=== PATIENT | female | born 1945 | race Caucasian/White ===

== ENCOUNTER 2016-09-03 19:07 | Observation (INO) ==
[2016-09-03] MEDS ORDERED: *HR* OxyCODONE Immed Rel 15 MG TABLET PO PRN (22:42)
[2016-09-04] MEDS ORDERED: Ondansetron 4 MG/2 ML VIAL IVP PRN (01:22)
[2016-09-04] MEDS ORDERED: *HR* Morphine 2 MG/ML SYRINGE IVP PRN (01:22)
[2016-09-04] MEDS ORDERED: Naloxone 0.4 MG/ML INJ IVP PRN (01:22)
[2016-09-04 02:03] LABS: VBG PH 7.47 pH Units (7.32-7.42)
[2016-09-04 02:08] LABS: INR 1.5; Prothrombin Time 16.2 Seconds (9.4-12.1)
[2016-09-04 02:19] LABS: Albumin/Globulin Ratio 0.4 (1.1-2.2); Bilirubin,Total 0.3 mg/dL (0.2-1.2); Calcium 8.4 mg/dL (8.6-10.8); Chol/HDL Ratio 4.6 (0-4.9); Globulin 4.5 g/dL (2.4-3.5); Magnesium 1.5 mg/dL (1.6-2.6); Potassium 4.5 mEq/L (3.5-4.5); Total Protein 6.4 g/dL (6.0-8.3)
[2016-09-04 02:21] LABS: Albumin 1.9 g/dL (3.5-5.0)
[2016-09-04 02:39] LABS: Thyroid Stimulating Hormone 1.097 mcIU/mL (0.350-4.840)
[2016-09-04] MEDS: *HR* OxyCODONE Immed Rel 5 MG TABLET PO PRN ×2 (02:48→21:28)
[2016-09-04] MEDS: 0.9 % Sodium Chloride 1,000 ML IVC SCH ×2 (02:48→23:11)
[2016-09-04] MEDS: Acetaminophen 325 MG TABLET PO PRN (04:05)
[2016-09-04] MEDS: *HR* Heparin 5,000 UNIT/ML VIAL SQ SCH ×3 (06:18→23:15)
--- NOTE | 2016-09-04 08:57 | Internal Med History&Physical ---
Date of Encounter: 09/03/16 Time of Encounter: 01:00 Assessment and Plan (1) Atrial fibrillation with rapid ventricular response Status: Acute . (2) UTI (urinary tract infection) Status: Acute . Qualifiers: Urinary tract infection type: acute cystitis Hematuria presence: with hematuria Qualified Code(s): N30.01 - Acute cystitis with hematuria (3) SIRS (systemic inflammatory response syndrome) Status: Acute . (4) Obesity (BMI 30-39.9) Status: Chronic . (5) CL (acute kidney injury) Status: Acute . (6) CKD (chronic kidney disease) stage 3, GFR 30-59 ml/min Status: Chronic . (7) Rectal cancer Status: Chronic . (8) Hematuria Status: Acute .. Internal Medicine - H&P: HPI Chief complaint: Generalized weakness Admitted From: Hospital to Hospital Transfer Plans for Post Hospital Care: Home History of present illness: Ms. Figueredo is a 70 year old female is significant for colo-rectal carcinoma s/p pelvic exoneration+ neoadjuvant chemotherapy and radiation therapy+ileostomy+ urostomy, type 2 DM, osteoarthritis, osteopenia, RAD/asthma, obesity, nonsmoker The patient was visited and interviewed and examined. Patient is admitted to [facility] as a hospital transfer from [facility] [place] emergency Department [facility] patient presented with complaints possible stroke symptoms. EMS services were called to her home by her daughter. Patient was found supine in bed complaining of difficulty speaking. Patient's daughter reported that speech was garbled on the phone earlier in the morning. She consequently called 911 to the home to evaluate. Patient patient has a history of metastatic colon CA. He recently underwent surgeries VELA and considering. Her oncologist had prescribed two new pain medication the day prior to address acute/chronic pain and anxiety( oxycodone 20 mg every 6 hours plus OxyContin extended release 20 mg twice daily) and an antibiotic for UTI (Cipro 500 mg twice daily). She had developed a urinary tract obstruction with bilateral hydronephrosis and was to be seen by urology later in the week. As a consequence although alert she was found to be confused and her speech was slurred and hard to understand. Patient was able to follow commands. Telemetry demonstrated atrial fibrillation with RVR at 150 -160 bpm initial blood sugar returned low at 35 and 25 mg of D50 administered. Following receiving this patient to was able to speak more clearly. Seemed more alert and oriented. Acute stroke assessment returned negative. Blood sugar post administration of D50 80 mg. Large cyst approximately mid thigh and went to venous duplex examination which was negative for DVT consistent with superficial vein. Portable chest x-ray revealed no acute or active cardiopulmonary process. Troponin measurements 2 returned at 0.08. BNP 545. WBC 22.8 hemoglobin 8.8 platelets 455,000. Differential showed an increase in neutrophils. CPK 36 KMP 1.8. Metabolic panel showed a sodium of 132 and glucose of 10 10 creatinine 1.35. GFR 41. Albumin was 2.8 with total of 6.5. AST 63 ALT 42. D-dimer 1122. Magnesium 2. PTT 29.4 pro time 15.6 INR 1.4. Lactic acid 2.27 glucose point care prior to transfer to [facility]. Additional treatments prior to transfer including intravenous Lopressor plus oral Lopressor loading dose, intravenous normal saline bolus, intravenous cefepime and vancomycin and oral Percocet. Diagnoses included sepsis unspecified likely of urinary source.; paroxysmal atrial fibrillation with RVR with demand ischemia of myocardium and troponin elevation+ BNP elevation, r/o ACS; and symptomatic hypoglycemia induced transient acute metabolic encephalopathy and delirium. Patient presents increased risk for further acute clinical decline and morbidity given her presenting chief complaint, frailty and comorbid conditions. Workup and treatments will proceed comprehensively. Cumulative laboratory and radiographic data base was reviewed, considered and discussed. Pertinent ancillary medical records including ECW and PCI documentation was reviewed and considered. Given the patient's presenting concerns, past medical history, clinical findings and symptoms, she is admitted at this time will undergo further evaluation and disposition. Orders were written as per the computerized physician court recorder system.......................................................................... .................... Consultative opinions will be sought as clinical circumstances justify. Pain management needs will be addressed. Laboratory and radiographic data base will be updated as appropriate. Studies include: Cultures blood urine and sputum, CPK, ammonia, NV/INR/APTT, cardiac injury panel, BNP, metabolic and hematologic panel, magnesium, phosphorus, ionized calcium, thyroid panel, lipid profile, hgbA1c, C-peptide, CRP sedi rate , UA, respiratory infection profile, respiratory virus panel, blood gas, lactic acid, serologies, etc. Precautions: Aspiration, fall, delirium protocol/surveillance initiated. Telemetry with continuous hemodynamic monitoring and pulse oximetry initiated. Orthostatic vital signs. Empiric antibody coverage: Intravenous Rocephin pending culture data. Special studies: CT/CTA chest, CT abd/pelvis, chest x-ray, telemetry, EKG. Pulmonary toilet: Incentive spirometry, aerosol bronchodilator, mucolytic, antitussive, supplemental oxygen. Corticosteroid therapy. CPAP/BiPAP supplemental oxygen delivery. Aerosol Mucomyst therapy. Fluid and electrolyte repletion efforts will proceed. Careful attention to fluid balance and renal recovery will be emphasized. Avoidance of nephrotoxic exposure and adverse drug drug interaction in the setting of impaired renal function will be monitored closely. Acute coronary syndrome protocol/surveillance initiated. Aspirin statin LYNNETTE inhibitor and beta benny. Therapeutic Lovenox. When necessary morphine. When necessary nitrates. Supplemental oxygen. IV Diltiazem loading dose and diltiazem drip initiated. DVT and PUD prophylaxis initiated: PPI therapy, intermittent pneumatic cuffs. Subq heparin/Lovenox. Early ambulation will be encouraged. Immunization updates recommended. Influenza and pneumococcal vaccinations as part of ongoing preventative healthcare recommendations strongly recommended. Smoking cessation counseling briefly addressed. Patient is a nonsmoker. Advanced care directive discussion briefly addressed. Patient does not declare any healthcare restrictions at this time. Cardiovascular risk appraisal and cardiovascular risk reduction efforts will be emphasized. Physical /occupational therapy consulted to evaluate patient's functional capacity and progress mobility as her circumstances permit. Sliding scale insulin coverage, ADA dietary restraint and schedule an as-needed basis fingerstick glucose assessments were initiated. Nutrition/diabetes education counseling may be considered as circumstances justify. Outpatient medication schedules will be reviewed, confirmed and facilitated as appropriate. Reconciliation of home treatments including adjustments, substitutions and reintroduction into the treatment regimen will address necessary maintenance therapies for chronic pre-existing medical conditions. Plan of care has been reviewed and discussed in detail with the patient. Questions addressed. Hospital course dictated by clinical findings, treatment response and potential consultative interventions. Patient is at risk for further acute clinical decline and morbidity due to her advanced age,frailty, chief complaints and comorbid conditions. Condition is serious. Prognosis is guarded. CODE STATUS is full. Past Med Surg Social Fam HX - Past Medical History Source: old records reviewed Medical history: arthritis, atrial fibrillation, cancer, diabetes, GERD, glaucoma, hypertension, osteoporosis Psychiatric history: no psych history - Past Surgical History Surgical History: cancer surgery, colostomy, other - Social History Smoking Status: Former smoker Smokeless Tobacco Status: No Alcohol use: none Drug use: none Occupational status: retired Current living situation: With Family Activity Level: Mostly sedentary Recent Out of Country Travel Within the Last 8 Weeks: No Exposure or Possible Exposure to Illness During Travel: No - Family History Brother Living Status: Still Living Hx Family Cardiac Disorders: Yes (AFIB) Hx Family Respiratory Disorders: No Hx Family Cancer: No Hx Family GI Disorders: No Hx Family Genitourinary Disorders: No Hx Family Endocrine Disorder: No Hx Family Musculoskeletal Disorders: No Hx Family Neuromuscular Disorders: No Hx Family Neurologic Disorders: No Hx Family HEENT Disorders: No Hx Family Autoimmune Disorders: No Hx Family Reproductive Disorders: No Hx Family Psychosocial Disorders: No Hx Family Medical Disorders: No Sister Living Status: Still Living Hx Family Cardiac Disorders: Yes (AFiB) Hx Family Respiratory Disorders: No Hx Family Cancer: No Hx Family GI Disorders: No Hx Family Genitourinary Disorders: No Hx Family Endocrine Disorder: Yes (DM) Hx Family Musculoskeletal Disorders: No Hx Family Neuromuscular Disorders: No Hx Family Neurologic Disorders: No Hx Family HEENT Disorders: No Hx Family Autoimmune Disorders: No Hx Family Reproductive Disorders: No Hx Family Psychosocial Disorders: No Hx Family Medical Disorders: No Son Living Status: Still Living Hx Family Cardiac Disorders: Yes (HTN) Hx Family Respiratory Disorders: No Hx Family Cancer: No Hx Family GI Disorders: No Hx Family Genitourinary Disorders: No Hx Family Endocrine Disorder: Yes (DM) Hx Family Musculoskeletal Disorders: No Hx Family Neuromuscular Disorders: No Hx Family Neurologic Disorders: No Hx Family HEENT Disorders: No Hx Family Autoimmune Disorders: No Hx Family Reproductive Disorders: No Hx Family Psychosocial Disorders: No Hx Family Medical Disorders: No Mother Family Member Ethnicity: Unknown Living Status: Hx Family Cardiac Disorders: Yes Hx Family Respiratory Disorders: No Hx Family Cancer: No Hx Family GI Disorders: No Hx Family Genitourinary Disorders: No Hx Family Endocrine Disorder: Yes Hx Family Musculoskeletal Disorders: No Hx Family Neuromuscular Disorders: Yes Hx Family Neurologic Disorders: No Hx Family HEENT Disorders: No Hx Family Autoimmune Disorders: No Hx Family Reproductive Disorders: No Hx Family Psychosocial Disorders: No Hx Family Medical Disorders: No Father Adopted: No Family Member Ethnicity: Non- Living Status: Hx Family Cardiac Disorders: Yes Hx Family Respiratory Disorders: No Hx Family Cancer: No Hx Family GI Disorders: No Hx Family Genitourinary Disorders: No Hx Family Endocrine Disorder: No Hx Family Musculoskeletal Disorders: No Hx Family Neuromuscular Disorders: No Hx Family Neurologic Disorders: No Hx Family HEENT Disorders: No Hx Family Autoimmune Disorders: No Hx Family Reproductive Disorders: No Hx Family Psychosocial Disorders: No Hx Family Medical Disorders: No Internal Medicine - H&P: Meds Multivitamin [Multi-Day Vitamins] 1 each PO DAILY 04/18/15 [History] Avenue Oil/[place]-3 Fatty Acids [Fish Oil 500 mg Softgel] 1 each PO DAILY [History] Fluticasone Propionate Nasal [Flonase] 1 spray NS DAILY 08/20/15 [History] Zolpidem [Ambien] 5 mg PO Q6H PRN 08/20/15 [History] Docusate Sodium [Stool Softener] 100 mg PO BID PRN 06/10/16 [History] Losartan Potassium [Cozaar] 100 mg PO DAILY 09/03/16 [History] Aspirin 81 mg PO DAILY 09/04/16 [History] Loratadine [Claritin] 10 mg PO DAILY 09/04/16 [History] Metoprolol XL (24 HR) Succ [Toprol Xl] 50 mg PO DAILY 09/04/16 [History] OxyCODONE ER (12 HR) [OxyCONTIN] 20 mg PO BID 09/04/16 [History] Oxycodone HCl 5 mg PO Q6H PRN 09/04/16 [History] Oxycodone HCl/Acetaminophen [Percocet 5-325 mg Tablet] 1 each PO Q6H PRN [History] Metformin [Glucophage] 500 mg PO 0800 #30 tablet 09/08/16 [Rx] Allergies Penicillins Allergy (Verified 09/04/16 11:39) Rash All Systems PM: A 10-system review of systems was performed and is negative for pertinent findings except as documented above in the HPI. - Constitutional Constitutional: as per HPI, malaise, no chills, no fever(s), no night sweats - EENT Eyes: as per HPI, no change in vision, no discharge, no pain, no photophobia Ears: as per HPI, no ear discharge, no ear pain, no tinnitus Nose, mouth and throat: as per HPI, no dysphagia, no nasal discharge, no neck pain, no sore throat - Cardiovascular Cardiovascular ROS IM: as per HPI, irregular heart rhythm, lightheadedness, palpitations, no chest pain, no diaphoresis, no dyspnea, no syncope - Respiratory Respiratory: as per HPI, no cough, no dyspnea, no wheezing, no excessive phlegm production - Gastrointestinal Gastrointestinal: no abdominal pain, no diarrhea, no hematemesis, no hematochezia, no melena, no nausea, no vomiting - Genitourinary Genitourinary: as per HPI, no change in urinary stream, no dysuria, no flank pain, no hematuria - Musculoskeletal Musculoskeletal ROS IM: as per HPI, no numbness, no tingling - Integumentary Integumentary IM: as per HPI, no rash, no unusual bruising - Neurological Neurological ROS: as per HPI, no confusion, no convulsions, no focal weakness, no numbness, no tingling, no tremor(s) - Psychiatric Psychiatric: as per HPI - Endocrine Endocrine IM: as per HPI - Hematologic/Lymphatic Hematologic/Lymphatic: as per HPI, no easy bruising - Allergic/Immunologic Allergic/Immunologic: as per HPI - Constitutional Vitals: Temp Pulse Resp BP Pulse Ox 97.8 F 83 18 122/57 97 09/04/16 08:02 09/04/16 08:02 09/04/16 08:02 09/04/16 08:02 09/04/16 08:02 General appearance: Present: cooperative, mild distress, A&O X 3, obese, answers questions appropriately - Head Head exam: Present: atraumatic, normocephalic - Eye Eye exam: Present: EOMI, PERRL, conjuntiva pink, sclera anicteric Pupils: Present: PERRL - ENT ENT exam: Present: mucous membranes moist, normal oropharynx - Neck Neck exam general surgery: Present: full ROM, supple, trachea midline. Absent: lymphadenopathy - Respiratory Respiratory exam: Present: decreased breath sounds, CTAB. Absent: accessory muscle use, rales, rhonchi, wheezes - Cardiovascular Cardiovascular exam: Present: distant heart sounds, RRR, +S1, +S2. Absent: diastolic murmur, gallop, rubs, systolic murmur - GI/Abdominal GI/Abdominal exam: Present: normal bowel sounds, soft, no peritoneal signs. Absent: distended, tenderness - Extremities Exam Extremities exam: Present: full ROM, warm, radial pulses palpable and symetrical. Absent: calf tenderness, cyanotic, pedal edema - Neurological Exam Neurological exam: Present: alert, CN II-XII intact, oriented X3, no focal deficits. Absent: pronater drift, facial droop, speech deficit - Psychiatric Psychiatric exam: Present: normal affect, normal mood - Skin Skin exam: Present: dry, intact, warm. Absent: petechiae, rash, urticaria, vesicles Internal Med - H&P Results - Labs CBC & Chem 7: 09/08/16 04:17 09/08/16 04:17 Labs: BMP 09/04/16 01:54 Sodium 134 L Potassium 4.5 Chloride 105 Carbon Dioxide 22 BUN 24 H Creatinine 1.19 H Glucose 113 H Calcium 8.4 L Cardiac Enzymes 09/04/16 Range/Units 01:54 Troponin I 0.05 H* (0-0.03) ng/mL Liver Function 09/04/16 Range/Units 01:54 Total Bilirubin 0.3 (0.2-1.2) mg/dL AST 268 H (5-34) Units/L ALT 180 H (0-55) Units/L Alkaline Phosphatase 75 (38-126) Units/L Albumin 1.9 L (3.5-5.0) g/dL - ABG Interpretation ABG results: 09/04/16 01:54 VBG pH 7.47 H VBG pCO2 33 L VBG pO2 50 H VBG HCO3 24.0 - Impressions Vital Signs Temp Pulse Resp BP Pulse Ox 09/04/16 08:02 97.8 F 83 18 122/57 97 09/04/16 05:25 98.1 F 09/04/16 04:00 100.2 F H 103 19 136/82 98 09/03/16 22:09 98.4 F 92 17 131/77 97 09/03/16 21:41 96 Intake and Output 09/03/16 09/04/16 09/04/16 23:59 07:59 15:59 Intake Total 0 / 0 600 / 600 Output Total 0 / 0 1200 / 1200 1000 / 1000 Balance 0 / 0 -600 / -600 -1000 / -1000 Intake: Oral 0 / 0 600 / 600 Output: Urostomy 1200 / 1200 1000 / 1000 Catheter 0 / 0 0 / 0 Other: Weight 85.4 kg 85.4 kg Blood Glucose* 176 100 Patient Weight 09/04/16 23:59 Weight 85.4 kg BMP 09/04/16 Range/Units 01:54 Sodium 134 L (136-145) mEq/L Potassium 4.5 (3.5-4.5) mEq/L Chloride 105 (98-109) mEq/L Carbon Dioxide 22 (19-29) mEq/L BUN 24 H (7-20) mg/dL Creatinine 1.19 H (0.57-1.11) mg/dL Glucose 113 H (70-99) mg/dL Calcium 8.4 L (8.6-10.8) mg/dL Cardiac Enzymes 09/04/16 Range/Units 01:54 Troponin I 0.05 H* (0-0.03) ng/mL Liver Function 09/04/16 Range/Units 01:54 Total Bilirubin 0.3 (0.2-1.2) mg/dL AST 268 H (5-34) Units/L ALT 180 H (0-55) Units/L Alkaline Phosphatase 75 (38-126) Units/L Albumin 1.9 L (3.5-5.0) g/dL 09/04/16 01:54 VBG pH 7.47 H VBG pCO2 33 L VBG pO2 50 H VBG HCO3 24.0 Abnormal lab results PT 16.2 Seconds (9.4-12.1) H 09/04/16 01:54 VBG pH 7.47 pH Units (7.32-7.42) H 09/04/16 01:54 VBG pCO2 33 mmHg (41-51) L 09/04/16 01:54 VBG pO2 50 mmHg (25-40) H 09/04/16 01:54 Sodium 134 mEq/L (136-145) L 09/04/16 01:54 BUN 24 mg/dL (7-20) H 09/04/16 01:54 Creatinine 1.19 mg/dL (0.57-1.11) H 09/04/16 01:54 Est GFR ( Amer) 54 (> 60) L 09/04/16 01:54 Est GFR (Non-Af Amer) 45 (> 60) L 09/04/16 01:54 Glucose 113 mg/dL (70-99) H 09/04/16 01:54 POC Glucose 176 (58-89) H 09/03/16 22:08 Calcium 8.4 mg/dL (8.6-10.8) L 09/04/16 01:54 Magnesium 1.5 mg/dL (1.6-2.6) L 09/04/16 01:54 AST 268 Units/L (5-34) H 09/04/16 01:54 ALT 180 Units/L (0-55) H 09/04/16 01:54 Troponin I 0.05 ng/mL (0-0.03) H* 09/04/16 01:54 C-Reactive Protein 234 mg/L (Less than 5) H 09/04/16 01:54 Albumin 1.9 g/dL (3.5-5.0) L 09/04/16 01:54 Globulin 4.5 g/dL (2.4-3.5) H 09/04/16 01:54 Albumin/Globulin Ratio 0.4 (1.1-2.2) L 09/04/16 01:54 HDL Cholesterol 18 mg/dL (40-59) L 09/04/16 01:54 Allergies Allergy/AdvReac Type Severity Reaction Status Date / Time Penicillins Allergy Rash Verified 06/09/16 14:41 Laboratory Results PT 16.2 Seconds (9.4-12.1) H 09/04/16 01:54 INR 1.5 09/04/16 01:54 APTT 26.0 Seconds (26.0-36.0) 09/04/16 01:54 VBG pH 7.47 pH Units (7.32-7.42) H 09/04/16 01:54 VBG pCO2 33 mmHg (41-51) L 09/04/16 01:54 VBG pO2 50 mmHg (25-40) H 09/04/16 01:54 VBG HCO3 24.0 mEq/L (21-27) 09/04/16 01:54 Sodium 134 mEq/L (136-145) L 09/04/16 01:54 Potassium 4.5 mEq/L (3.5-4.5) 09/04/16 01:54 Chloride 105 mEq/L (98-109) 09/04/16 01:54 Carbon Dioxide 22 mEq/L (19-29) 09/04/16 01:54 BUN 24 mg/dL (7-20) H 09/04/16 01:54 Creatinine 1.19 mg/dL (0.57-1.11) H 09/04/16 01:54 Est GFR ( Amer) 54 (> 60) L 09/04/16 01:54 Est GFR (Non-Af Amer) 45 (> 60) L 09/04/16 01:54 BUN/Creatinine Ratio 20 (6-26) 09/04/16 01:54 Glucose 113 mg/dL (70-99) H 09/04/16 01:54 POC Glucose 176 (58-89) H 09/03/16 22:08 Calculated Osmolality 283 (280-300) 09/04/16 01:54 Lactic Acid 0.8 mmol/L (0.5-2.2) 09/04/16 01:54 Calcium 8.4 mg/dL (8.6-10.8) L 09/04/16 01:54 Phosphorus 2.6 mg/dL (2.3-4.7) 09/04/16 01:54 Magnesium 1.5 mg/dL (1.6-2.6) L 09/04/16 01:54 Total Bilirubin 0.3 mg/dL (0.2-1.2) 09/04/16 01:54 AST 268 Units/L (5-34) H 09/04/16 01:54 ALT 180 Units/L (0-55) H 09/04/16 01:54 Alkaline Phosphatase 75 Units/L (38-126) 09/04/16 01:54 Troponin I 0.05 ng/mL (0-0.03) H* 09/04/16 01:54 C-Reactive Protein 234 mg/L (Less than 5) H 09/04/16 01:54 Serum Total Protein 6.4 g/dL (6.0-8.3) 09/04/16 01:54 Albumin 1.9 g/dL (3.5-5.0) L 09/04/16 01:54 Globulin 4.5 g/dL (2.4-3.5) H 09/04/16 01:54 Albumin/Globulin Ratio 0.4 (1.1-2.2) L 09/04/16 01:54 Triglycerides 74 mg/dL (< 150) 09/04/16 01:54 Cholesterol 83 mg/dL (< 200) 09/04/16 01:54 LDL Cholesterol, Calc 50 mg/dL (0-99) 09/04/16 01:54 VLDL Cholesterol, Calc 15 mg/dL (< 31) 09/04/16 01:54 HDL Cholesterol 18 mg/dL (40-59) L 09/04/16 01:54 Cholesterol/HDL Ratio 4.6 (0-4.9) 09/04/16 01:54 TSH 1.097 mcIU/mL (0.350-4.840) 09/04/16 01:54 Specimen Rejected Clotted 09/04/16 02:05 Ileo Loopogram 09/05/16 07:15 IMPRESSION: No evidence for stricturing of ileal conduit or of bilateral ureteral attachments. Bilateral hydroureteronephrosis, etiology uncertain. D/ / 09/05/2016 15:11:16 Hugo Cochran MD / luis angel Interpreting Provider: Hugo Cochran MD
[2016-09-04] MEDS ORDERED: Aspirin Enteric Coated 81 MG Tablet PO SCH (09:00)
[2016-09-04] MEDS ORDERED: Diltiazem CD (24hr) 300 MG CAPSULE PO SCH (09:00)
[2016-09-04] MEDS ORDERED: *HR* OxyCODONE ER (12 HR) 20 MG TABLET PO SCH (09:00)
[2016-09-04] MEDS: Metoprolol 100 MG TABLET PO SCH (09:50)
[2016-09-04 09:52] LABS: Basophils # 0.1 K/mcL (0.0-0.2); Basophils % 0.4 %; Eosinophils # 0.1 K/mcL (0.0-0.6); Eosinophils % 0.6 %; Hemoglobin 7.7 g/dL (11.5-15.4); Immature Granulocytes % 1.2 % (0-4); Lymphocytes # 0.8 K/mcL (0.6-4.6); Mean Corpuscular HGB Conc 32.1 g/dL (31.6-35.5); Mean Corpuscular Hemoglobin 27.4 pg (28.0-33.3); Mean Corpuscular Volume 85.4 fL (83.0-100.0); Mean Platelet Volume 9.5 fL (9.4-12.4); Monocytes # 0.7 K/mcL (0.0-1.3); Monocytes % 6.2 %; Neutrophils # 9.5 K/mcL (1.6-8.9); Platelet Count 418 K/mcL (140-400); Red Blood Count 2.81 M/mcL (3.82-4.97); Red Cell Distribution Width 15.3 % (11.5-14.5); Segmented Neutrophils % 84.6 %
[2016-09-04] MEDS: (Fish Oil 500 Mg Soft) PO SCH (09:52)
[2016-09-04] MEDS: Fluticasone Propionate Nasal 50 MCG/SPRAY BOTTLE NS SCH (10:41)
[2016-09-04] MEDS: Saline Nasal Spray 44 ML BOTTLE NS SCH (10:41)
[2016-09-04] MEDS ORDERED: *HR* OxyCODONE Immed Rel 15 MG TABLET PO PRN (13:23)
[2016-09-04] MEDS ORDERED: Dextrose Gel 15 GM PO PRN ×2 (15:19)
[2016-09-04] MEDS ORDERED: D5% in Water 1,000 ML IV PRN (15:19)
[2016-09-04] MEDS ORDERED: *HR* Dextrose 50 % in Water (Syg) 50 ML SYRINGE IVP PRN (15:19)
--- NOTE | 2016-09-04 15:19 | Event Note ---
<Tristen Bustamante - Last Filed: 09/04/16 14:38> Date of Encounter: 09/04/16 Time of Encounter: 09:38 70 y/o female hx of colorectal cancer, HTN, diabetes, who woke up yesterday morning feeling fatigued, unable to move, blurry vision. Patient was able to get a hold of her daughter who called EMS. EMS found patient's blood sugar to be 30. She was quickly given 1 amp of D50 and improved dramatically. Patient' s EKG showed atrial fibrillation which she has a history of however she is not on anticoagulation because of recurrent nosebleeds. Patient was taken to [facility]. There she was found to have a white blood cell count of 22 hemoglobin of 8.8. At [facility] ER she denied chest pain, shortness of breath. Her glucose level remained normal. Patient was transferred to [facility] for further care. Urine culture done by patient's oncologist grew Klebsiella which was pansensitive. Patient is followed outpatient by Dr. Werner for colorectal cancer. She has had multiple surgeries including hysterectomy, cystectomy, colon and rectal resection for her colon cancer. She has a urostomy and a colostomy. She is status post chemotherapy and radiation. Recent CT of abdomen and pelvis ordered by patient's oncologist showed should develop an ileal conduit blockage and bilateral hydronephrosis. Furthermore before admission she also developed a UTI. Patient was put on ciprofloxacin by her oncologist. Patient's oncologist was notified of her admission. This morning patient was sitting comfortably in her bed. While she complained of abdominal pain, she states that the pain around her urostomy and colostomy bags is chronic and recently her oncologist put her on 2 new narcotic medications. She denies chest pain, chills, dizziness, vomiting, nausea, shortness of breath. 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 Vitals: Pulse 83, Rep 18, BP 122/57, O2 97, Temp 98.8 Genearl: Alert Oriented x3 Heart: RRR no murmur Lungs: CTAB Abdomen: soft, tender around urostomy and colostomy tube both clean and draining well. Skin: no evidence of breakage, rash A/P 1. Hypoglycemia: resolved. Patients hypoglycemia was treated successfully. At home she takes glimepiride which has a increased chance of hypoglycemia. Patient does not take metformin. Her blood sugar this morning was 113. We will put patient on low sliding scale. Regular Diet. 2. Hydronephrosis: CT abdomen and pelvis on 07/02 shows evidence of blockage of ileal conduit and bilateral hydronephrosis. Patient urostomy continues to function appropriately. Urology was consultative for further evaluation. Appreciate input.3. 3. CL: Patient's creatinine is 1.13. That is increased from baseline of 0.89. Her history of present illness is most likely secondary to have a urinary tract infection and blockage of her ileal conduit. Patient is receiving IV fluids. We will hold aspirin. 4. UTI: Patient's urine cultures came back pansensitive for Klebsiella. Outpatient she was treated on ciprofloxacin. However due to recent onset of [place] high patient was switched to a less nephrotoxic drug ceftriaxone. 5. Colorectal Cancer: Patient's colorectal cancer Stage [address] Werner. Currently she will get CAT scans every 3 months. 6. HTN: Patient has history of hypertension. We will continue her diltiazem, losartan, metoprolol. Patient's blood pressure has been under control at 122/ 80. 7. DVT prophylaxis: Continue heparin <Paresh Mix - Last Filed: 09/04/16 19:13> Date of Encounter: 09/04/16 Ms. Figueredo is currently admitted for acute UTI and hypoglycemia. Above reviewed. Pt is beginning to feel better. Continue current plan of care.
--- NOTE | 2016-09-04 16:26 | Urology - Consult Note ---
Date of Encounter: 09/04/16 Time of Encounter: 16:23 - Assessment and Plan (1) Hydronephrosis Current Visit: Yes Status: Acute Assessment and plan: 70-year-old woman with a concern for bilateral hydronephrosis. I reviewed her CT scan. Sometimes a hydronephrosis can be due to the ureteral ileal anastomosis and reflux. I will obtain a loopogram to see if there is any evidence of anastomotic stricture. If there is a stricture, consideration for a nephrostomy tube as an option. Her renal function is somewhat diminished compared to where she was back in the fall of 2016, but that can be seen with reabsorption with the ileal conduit. Qualifiers: Qualified Code(s): N13.30 - Unspecified hydronephrosis (2) UTI (urinary tract infection) Current Visit: Yes Status: Acute Assessment and plan: There was klebsiella seen in the urine. She is currently on ceftriaxone. We will continue the antibiotics for now. Her heart rate and blood pressure is stable. Qualifiers: Urinary tract infection type: acute cystitis Hematuria presence: with hematuria Qualified Code(s): N30.01 - Acute cystitis with hematuria Urology CN:HPI Consult date: 09/04/16 Reason for consult Urology: Hydronephrosis Requesting physician: Paresh Mix History of present illness: 70 year old woman with a history of colorectal cancer was admitted for altered mental status, hypoglycemia and possible urinary tract infection. She had an abdominoperineal resection previously. There was concern for recurrence. She was seen by group a surgical oncologist and underwent a fairly extensive exoneration which required flap closure of her perineum and she had a cystectomy with ileal conduit urinary diversion. She was admitted after a CT scan showed evidence of bilateral hydroureteronephrosis extending down to the ileal conduit. She has had very good urine output. Her mental status is improved. I was consulted to assess the ureteral ileal anastomoses and to determine if there is any evidence of obstruction. She says she is feeling well. Past Med Surg Social Fam HX - Past Medical History Medical history: arthritis, atrial fibrillation, cancer, diabetes, glaucoma, hypertension, osteoporosis Psychiatric history: no psych history - Past Surgical History Surgical History: cancer surgery, colostomy, other - Social History Smoking Status: Former smoker Smokeless Tobacco Status: No Alcohol use: none Drug use: none - Family History Brother Living Status: Still Living Hx Family Cardiac Disorders: Yes (AFIB) Hx Family Respiratory Disorders: No Hx Family Cancer: No Hx Family GI Disorders: No Hx Family Genitourinary Disorders: No Hx Family Endocrine Disorder: No Hx Family Musculoskeletal Disorders: No Hx Family Neuromuscular Disorders: No Hx Family Neurologic Disorders: No Hx Family HEENT Disorders: No Hx Family Autoimmune Disorders: No Hx Family Reproductive Disorders: No Hx Family Psychosocial Disorders: No Hx Family Medical Disorders: No Sister Living Status: Still Living Hx Family Cardiac Disorders: Yes (AFiB) Hx Family Respiratory Disorders: No Hx Family Cancer: No Hx Family GI Disorders: No Hx Family Genitourinary Disorders: No Hx Family Endocrine Disorder: Yes (DM) Hx Family Musculoskeletal Disorders: No Hx Family Neuromuscular Disorders: No Hx Family Neurologic Disorders: No Hx Family HEENT Disorders: No Hx Family Autoimmune Disorders: No Hx Family Reproductive Disorders: No Hx Family Psychosocial Disorders: No Hx Family Medical Disorders: No Son Living Status: Still Living Hx Family Cardiac Disorders: Yes (HTN) Hx Family Respiratory Disorders: No Hx Family Cancer: No Hx Family GI Disorders: No Hx Family Genitourinary Disorders: No Hx Family Endocrine Disorder: Yes (DM) Hx Family Musculoskeletal Disorders: No Hx Family Neuromuscular Disorders: No Hx Family Neurologic Disorders: No Hx Family HEENT Disorders: No Hx Family Autoimmune Disorders: No Hx Family Reproductive Disorders: No Hx Family Psychosocial Disorders: No Hx Family Medical Disorders: No Mother Family Member Ethnicity: Unknown Living Status: Hx Family Cardiac Disorders: Yes Hx Family Respiratory Disorders: No Hx Family Cancer: No Hx Family GI Disorders: No Hx Family Genitourinary Disorders: No Hx Family Endocrine Disorder: Yes Hx Family Musculoskeletal Disorders: No Hx Family Neuromuscular Disorders: Yes Hx Family Neurologic Disorders: No Hx Family HEENT Disorders: No Hx Family Autoimmune Disorders: No Hx Family Reproductive Disorders: No Hx Family Psychosocial Disorders: No Hx Family Medical Disorders: No Father Adopted: No Family Member Ethnicity: Non- Living Status: Hx Family Cardiac Disorders: Yes Hx Family Respiratory Disorders: No Hx Family Cancer: No Hx Family GI Disorders: No Hx Family Genitourinary Disorders: No Hx Family Endocrine Disorder: No Hx Family Musculoskeletal Disorders: No Hx Family Neuromuscular Disorders: No Hx Family Neurologic Disorders: No Hx Family HEENT Disorders: No Hx Family Autoimmune Disorders: No Hx Family Reproductive Disorders: No Hx Family Psychosocial Disorders: No Hx Family Medical Disorders: No Medications and Allergies Multivitamin [Multi-Day Vitamins] 1 each PO DAILY 04/18/15 [History] [place] Oil/Curtiss-3 Fatty Acids [Fish Oil 500 mg Softgel] 1 each PO DAILY [History] Fluticasone Propionate Nasal [Flonase] 1 spray NS DAILY 08/20/15 [History] Zolpidem [Ambien] 5 mg PO Q6H PRN 08/20/15 [History] Docusate Sodium [Stool Softener] 100 mg PO BID PRN 06/10/16 [History] Ciprofloxacin [Cipro] 500 mg PO BID #10 tablet 09/02/16 [Rx] Glimepiride [Amaryl] 4 mg PO DAILY 09/03/16 [History] Losartan Potassium [Cozaar] 100 mg PO DAILY 09/03/16 [History] Aspirin 81 mg PO DAILY 09/04/16 [History] Loratadine [Claritin] 10 mg PO DAILY 09/04/16 [History] Metoprolol XL (24 HR) Succ [Toprol XL] 50 mg PO DAILY 09/04/16 [History] OxyCODONE ER (12 HR) [OxyCONTIN] 20 mg PO BID 09/04/16 [History] Oxycodone HCl 5 mg PO Q6H PRN 09/04/16 [History] Oxycodone HCl/Acetaminophen [Percocet 5-325 mg Tablet] 1 each PO Q6H PRN [History] Allergies Penicillins Allergy (Verified 09/04/16 11:39) Rash Review of Systems - Constitutional no chills, no fever(s) - EENT Nose, mouth and throat: dizziness - Cardiovascular no chest pain - Respiratory no dyspnea - Gastrointestinal no nausea, no vomiting - Genitourinary Genitourinary: no flank pain, no hematuria - Musculoskeletal no back pain - Integumentary no erythema, no rash - Neurological no weakness - Psychiatric no suicidal ideation - Hematologic/Lymphatic no easy bleeding - Allergic/Immunologic no wheezing Exam Initial Vital Signs Pulse Ox 96 09/03/16 21:41 - General physical appearance Present: well developed, well nourished, no distress - Eyes Absent: icteric - ENT Present: normal nares - Neck Present: trachea midline - Respiratory Present: normal respiratory effort - Cardiovascular Cardiovascular exam IM: RRR - Abdomen Abdomen: Present: soft (ostomy is patent with clear urine.) Urology Results - Labs 09/04/16 09:42 09/04/16 01:54 Abnormal lab results WBC 11.3 K/mcL (4.3-11.1) H 09/04/16 09:42 RBC 2.81 M/mcL (3.82-4.97) L 09/04/16 09:42 Hgb 7.7 g/dL (11.5-15.4) L 09/04/16 09:42 Hct 24.0 % (35.3-44.9) L 09/04/16 09:42 MCH 27.4 pg (28.0-33.3) L 09/04/16 09:42 RDW 15.3 % (11.5-14.5) H 09/04/16 09:42 Plt Count 418 K/mcL (140-400) H 09/04/16 09:42 Neutrophils # 9.5 K/mcL (1.6-8.9) H 09/04/16 09:42 PT 16.2 Seconds (9.4-12.1) H 09/04/16 01:54 VBG pH 7.47 pH Units (7.32-7.42) H 09/04/16 01:54 VBG pCO2 33 mmHg (41-51) L 09/04/16 01:54 VBG pO2 50 mmHg (25-40) H 09/04/16 01:54 Sodium 134 mEq/L (136-145) L 09/04/16 01:54 BUN 24 mg/dL (7-20) H 09/04/16 01:54 Creatinine 1.19 mg/dL (0.57-1.11) H 09/04/16 01:54 Est GFR ( Amer) 54 (> 60) L 09/04/16 01:54 Est GFR (Non-Af Amer) 45 (> 60) L 09/04/16 01:54 Glucose 113 mg/dL (70-99) H 09/04/16 01:54 POC Glucose 176 (58-89) H 09/03/16 22:08 Calcium 8.4 mg/dL (8.6-10.8) L 09/04/16 01:54 Magnesium 1.5 mg/dL (1.6-2.6) L 09/04/16 01:54 AST 268 Units/L (5-34) H 09/04/16 01:54 ALT 180 Units/L (0-55) H 09/04/16 01:54 Troponin I 0.04 ng/mL (0-0.03) H* 09/04/16 13:10 C-Reactive Protein 234 mg/L (Less than 5) H 09/04/16 01:54 Albumin 1.9 g/dL (3.5-5.0) L 09/04/16 01:54 Globulin 4.5 g/dL (2.4-3.5) H 09/04/16 01:54 Albumin/Globulin Ratio 0.4 (1.1-2.2) L 09/04/16 01:54 HDL Cholesterol 18 mg/dL (40-59) L 09/04/16 01:54 Diabetes panel 09/04/16 Range/Units 01:54 Sodium 134 L (136-145) mEq/L Potassium 4.5 (3.5-4.5) mEq/L Chloride 105 (98-109) mEq/L Carbon Dioxide 22 (19-29) mEq/L BUN 24 H (7-20) mg/dL Creatinine 1.19 H (0.57-1.11) mg/dL Glucose 113 H (70-99) mg/dL Calcium 8.4 L (8.6-10.8) mg/dL AST 268 H (5-34) Units/L ALT 180 H (0-55) Units/L Alkaline Phosphatase 75 (38-126) Units/L Albumin 1.9 L (3.5-5.0) g/dL Triglycerides 74 (< 150) mg/dL HDL Cholesterol 18 L (40-59) mg/dL Thyroid panel 09/04/16 Range/Units 01:54 TSH 1.097 (0.350-4.840) mcIU/mL Calcium panel 09/04/16 09/04/16 Range/Units 01:54 01:54 Calcium 8.4 L (8.6-10.8) mg/dL Phosphorus 2.6 (2.3-4.7) mg/dL Albumin 1.9 L (3.5-5.0) g/dL Pituitary panel 09/04/16 Range/Units 01:54 Sodium 134 L (136-145) mEq/L Potassium 4.5 (3.5-4.5) mEq/L Chloride 105 (98-109) mEq/L Carbon Dioxide 22 (19-29) mEq/L BUN 24 H (7-20) mg/dL Creatinine 1.19 H (0.57-1.11) mg/dL Glucose 113 H (70-99) mg/dL Calcium 8.4 L (8.6-10.8) mg/dL TSH 1.097 (0.350-4.840) mcIU/mL Adrenal panel 09/04/16 Range/Units 01:54 Sodium 134 L (136-145) mEq/L Potassium 4.5 (3.5-4.5) mEq/L Chloride 105 (98-109) mEq/L Carbon Dioxide 22 (19-29) mEq/L BUN 24 H (7-20) mg/dL Creatinine 1.19 H (0.57-1.11) mg/dL Glucose 113 H (70-99) mg/dL Calcium 8.4 L (8.6-10.8) mg/dL Total Bilirubin 0.3 (0.2-1.2) mg/dL AST 268 H (5-34) Units/L ALT 180 H (0-55) Units/L Alkaline Phosphatase 75 (38-126) Units/L Albumin 1.9 L (3.5-5.0) g/dL All other labs normal. - Imaging CT scan - abdomen: report reviewed, image reviewed CT scan - pelvis: report reviewed, image reviewed Consult Discharge Plan - Plan Referrals: Ross Zaragoza MD [Primary Care Provider] -
[2016-09-04] MEDS: Insulin LISPRO 300 UNITS/3 ML VIAL SQ SCH ×2 (17:51→21:28)
[2016-09-04] MEDS ORDERED: Insulin LISPRO 300 UNITS/3 ML VIAL SQ SCH (18:00)
--- NOTE | 2016-09-04 20:05 | Electrocardiograph Report ---
[address] [place] [address] Test Date: 2016-09-04 Pat Name: Toshia Figueredo Department: 111 Room: 2NE28 Gender: F Ota: : 1945 Requested By: Paco Greene Order Number: [id number] Reading MD: Troy Forrest Measurements Intervals [place] Rate: 87 P: 53 MD: 145 QRS: -29 QRSD: 102 T: 35 QT: 389 QTc: 433 Interpretive Statements SINUS RHYTHM POSSIBLE LEFT ATRIAL ENLARGEMENT ANTEROSEPTAL MYOCARDIAL INFARCTION, OF INDETERMINATE AGE Electronically Signed On 09-04-2016 20:04:08 EST by Troy Forrest
[2016-09-05 05:13] LABS: Basophils % 0.3 %; Eosinophils # 0.1 K/mcL (0.0-0.6); Eosinophils % 1.1 %; Hematocrit 24.7 % (35.3-44.9); Hemoglobin 7.7 g/dL (11.5-15.4); Immature Granulocytes % 0.5 % (0-4); Lymphocytes # 1.6 K/mcL (0.6-4.6); Lymphocytes % 13.8 %; Mean Corpuscular HGB Conc 31.2 g/dL (31.6-35.5); Mean Corpuscular Hemoglobin 27.6 pg (28.0-33.3); Mean Corpuscular Volume 88.5 fL (83.0-100.0); Mean Platelet Volume 10.3 fL (9.4-12.4); Monocytes # 0.9 K/mcL (0.0-1.3); Monocytes % 7.7 %; Platelet Count 430 K/mcL (140-400); Red Blood Count 2.79 M/mcL (3.82-4.97); Red Cell Distribution Width 15.6 % (11.5-14.5); Segmented Neutrophils % 76.6 %
[2016-09-05 05:49] LABS: Albumin/Globulin Ratio 0.5 (1.1-2.2); Bilirubin,Total 0.3 mg/dL (0.2-1.2); Calcium 8.6 mg/dL (8.6-10.8); Globulin 4.3 g/dL (2.4-3.5); Potassium 4.2 mEq/L (3.5-4.5); Total Protein 6.3 g/dL (6.0-8.3)
[2016-09-05] MEDS: *HR* Heparin 5,000 UNIT/ML VIAL SQ SCH ×3 (06:00→22:43)
[2016-09-05] MEDS ORDERED: *HR* Metoprolol 5 MG/5 ML VIAL IVP ONE ×2 (07:30→07:33)
[2016-09-05] MEDS: Insulin LISPRO 300 UNITS/3 ML VIAL SQ SCH ×4 (08:08→20:27)
[2016-09-05] MEDS: Metoprolol 100 MG TABLET PO SCH (08:08)
[2016-09-05] MEDS: Saline Nasal Spray 44 ML BOTTLE NS SCH (08:09)
[2016-09-05] MEDS: Fluticasone Propionate Nasal 50 MCG/SPRAY BOTTLE NS SCH (08:09)
[2016-09-05] MEDS: (Fish Oil 500 Mg Soft) PO SCH (08:10)
--- NOTE | 2016-09-05 12:12 | Internal Med Progress Note ---
<Tristen Bustamante - Last Filed: 09/05/16 13:19> Date of Encounter: 09/05/16 Time of Encounter: 11:41 - Assessment and plan (1) Hydronephrosis Current Visit: Yes Status: Acute Assessment and plan: 70-year-old female history of rectal cancer, diabetes mellitus, with extensive abdominal surgeries resulting urostomy and colostomy. Patient had a recent CT scan showing bilateral hydronephrosis and possible ileal conduit obstruction. Nephrology was consulted for further evaluation. She will undergo a loopogram today. If there is a stricture patient may need a nephrostomy tube. Patient's creatinine yesterday was 1.19 and has decreased to 1.11 today. She continues to produce around 2000 mL of urine daily. Qualifiers: Hydronephrosis type: unspecified Qualified Code(s): N13.30 - Unspecified hydronephrosis (2) Hypoglycemia associated with type 2 diabetes mellitus Current Visit: Yes Status: Resolved Assessment and plan: Initially patient was hospitalized secondary to hypoglycemic episode. At home she takes Glimiperide. She may need to be started on metformin and d/c glimiperide as it has higher incidence of hypoglycemia. Her glucose has been stable. (3) UTI (urinary tract infection), bacterial Current Visit: Yes Status: Acute Assessment and plan: Patient's urine culture shows pansensitive Klebsiella. She is currently treated with ceftriaxone day 2. (4) HTN (hypertension) Current Visit: Yes Status: Acute Assessment and plan: Patient's blood pressure has been stable. We will continue home losartan. Qualifiers: Hypertension type: essential hypertension Qualified Code(s): I10 - Essential (primary) hypertension (5) DVT prophylaxis Current Visit: Yes Status: Acute Assessment and plan: Heparin subcutaneous (6) LC (acute kidney injury) Current Visit: Yes Status: Resolved Assessment and plan: Patient's creatinine has improved from 1.19-1.11. CL secondary to UTI and in setting of hydronephrosis. We will continue IVF. (7) Atrial fibrillation Current Visit: Yes Status: Chronic Assessment and plan: Patient has hx of PAF. She went into afib rvr with rate around 150. Patient was given IV lopressor and converted back to sinus rhythym. We will continue her on metoprolol and cardizem. Furthermore, she is not an any anticoagulation due to previous hx of recurrent nosebleeds on coumadin. Qualifiers: Atrial fibrillation type: paroxysmal Qualified Code(s): I48.0 - Paroxysmal atrial fibrillation - Subjective Interval history: This morning patient went into [facility] RVR. Initially she was given metoprolol with conversion to sinus rhythm. During this incidence patient's vitals are stable. She denied any chest pain, shortness of breath,dizziness. Her only complaint was feeling of palpitations. - Constitutional Vitals: Temp Pulse Resp BP Pulse Ox 98.5 F 103 20 121/54 95 09/05/16 07:45 09/05/16 08:30 09/05/16 08:30 09/05/16 08:30 09/05/16 08:30 General appearance: Present: cooperative, mild distress, A&O X 3, obese, answers questions appropriately - Head Head exam: Present: atraumatic, normocephalic - Eye Eye exam: Present: PERRL, conjuntiva pink, sclera anicteric - Neck Neck exam general surgery: Present: supple, trachea midline. Absent: lymphadenopathy - Respiratory Respiratory exam: Present: CTAB. Absent: accessory muscle use, rales, rhonchi, wheezes - Cardiovascular Cardiovascular exam: Present: RRR, +S1, +S2. Absent: diastolic murmur, gallop, rubs, systolic murmur - GI/Abdominal GI/Abdominal exam: Present: normal bowel sounds, soft, no peritoneal signs. Absent: distended, tenderness - Extremities Exam Extremities exam: Present: warm, radial pulses palpable and symetrical. Absent : calf tenderness, cyanotic, pedal edema - Neurological Exam Neurological exam: Present: CN II-XII intact, oriented X3, no focal deficits. Absent: pronater drift, facial droop, speech deficit - Skin Skin exam: Present: dry, intact Internal Medicine: Result - Labs CBC & Chem 7: 09/05/16 04:43 09/05/16 04:43 Labs: Short CBC 09/05/16 Range/Units 04:43 WBC 11.8 H (4.3-11.1) K/mcL Hgb 7.7 L (11.5-15.4) g/dL Hct 24.7 L (35.3-44.9) % Plt Count 430 H (140-400) K/mcL Neutrophils # 9.0 H (1.6-8.9) K/mcL BMP 09/05/16 04:43 Sodium 138 Potassium 4.2 Chloride 108 Carbon Dioxide 21 BUN 25 H Creatinine 1.11 Glucose 70 Calcium 8.6 Cardiac Enzymes 09/04/16 Range/Units 13:10 Troponin I 0.04 H* (0-0.03) ng/mL Liver Function 09/05/16 Range/Units 04:43 Total Bilirubin 0.3 (0.2-1.2) mg/dL AST 112 H (5-34) Units/L ALT 165 H (0-55) Units/L Alkaline Phosphatase 80 (38-126) Units/L Albumin 2.0 L (3.5-5.0) g/dL - ABG Interpretation ABG results: PT/INR, D-dimer PT 16.2 Seconds (9.4-12.1) H 09/04/16 01:54 Consult Discharge Plan - Plan Referrals: Ross Zaragoza MD [Primary Care Provider] - <Paresh Mix - Last Filed: 09/05/16 18:09> Date of Encounter: 09/05/16 - Assessment and plan (1) Atrial fibrillation Current Visit: Yes Status: Acute Qualifiers: Atrial fibrillation type: paroxysmal Qualified Code(s): I48.0 - Paroxysmal atrial fibrillation (2) Acute metabolic encephalopathy due to hypoglycemia Current Visit: Yes Status: Acute (3) HTN (hypertension) Current Visit: Yes Status: Acute Qualifiers: Hypertension type: essential hypertension Qualified Code(s): I10 - Essential (primary) hypertension (4) UTI (urinary tract infection), bacterial Current Visit: Yes Status: Acute (5) Hypoglycemia associated with type 2 diabetes mellitus Current Visit: Yes Status: Resolved (6) Anemia Current Visit: Yes Status: Acute Qualifiers: Anemia type: other cause Other causes of anemia: chronic disease, neoplastic Qualified Code(s): D63.0 - Anemia in neoplastic disease (7) Presence of urostomy Current Visit: Yes Status: Chronic - Constitutional Vitals: Temp Pulse Resp BP Pulse Ox 99.1 F 72 16 116/50 95 09/05/16 11:54 09/05/16 11:54 09/05/16 11:54 09/05/16 11:54 09/05/16 11:54 Internal Medicine: Result - Labs CBC & Chem 7: 09/05/16 04:43 09/05/16 04:43 Labs: Short CBC 09/05/16 Range/Units 04:43 WBC 11.8 H (4.3-11.1) K/mcL Hgb 7.7 L (11.5-15.4) g/dL Hct 24.7 L (35.3-44.9) % Plt Count 430 H (140-400) K/mcL Neutrophils # 9.0 H (1.6-8.9) K/mcL BMP 09/05/16 04:43 Sodium 138 Potassium 4.2 Chloride 108 Carbon Dioxide 21 BUN 19 Creatinine 1.11 Glucose 70 Calcium 8.6 Liver Function 09/05/16 Range/Units 04:43 Total Bilirubin 0.3 (0.2-1.2) mg/dL AST 112 H (5-34) Units/L ALT 165 H (0-55) Units/L Alkaline Phosphatase 80 (38-126) Units/L Albumin 2.0 L (3.5-5.0) g/dL - ABG Interpretation ABG results: PT/INR, D-dimer PT 16.2 Seconds (9.4-12.1) H 09/04/16 01:54 - Impressions Impressions [place] Loopogram 09/05/16 07:15 IMPRESSION: No evidence for stricturing of ileal conduit or of bilateral ureteral attachments. Bilateral hydroureteronephrosis, etiology uncertain. D/ /05/2016 15:11:16 Hugo Cochran MD / [email or web address] Interpreting Provider: Hugo Cochran MD - Attending Attestation I examined this patient and my medical decision-making was reviewed with the Resident Physician on 09/05/16. I agree with the documented findings, disposition and treatment plan as described except to the extent set forth below. Ms. Figueredo is currently admitted for acute encephalopathy due to hypoglycemia and infection as well as rapid a fib. She remains high risk due to potential for worsening cardiac status and infection. Ms. Figueredo had another episode of paroxysmal a fib this morning. She converted with 5mg Lopressor IV. She was asymptomatic at the time (sleeping). Currently she has no issues. Exam Alert. Comfortable Heart irreg and tachy Lungs clear Abd soft I/P 1. Parox a fib 2. Acute metabolic encep from hypoglycemia and infection 3. UTI Further diagnoses and plan as above.
--- NOTE | 2016-09-05 17:28 | Urology Progress Note ---
Date of Encounter: 09/05/16 Time of Encounter: 17:26 - Assessment and Plan (1) Hydronephrosis Current Visit: Yes Status: Acute Assessment and plan: No evidence of uretero-enteric anastamotic stricture. Hydronephrosis is likely secondary to reflux. Will monitor. No need for nephrostomy tube. Qualifiers: Hydronephrosis type: unspecified Qualified Code(s): N13.30 - Unspecified hydronephrosis (2) UTI (urinary tract infection) Current Visit: Yes Status: Acute Assessment and plan: Okay to transition over to PO meds per primary team. Qualifiers: Urinary tract infection type: acute cystitis Hematuria presence: with hematuria Qualified Code(s): N30.01 - Acute cystitis with hematuria Progress Note Narrative: Doing well. Good uop. Creatinine stable. Loop-o-gram reviewed. No evidence of uretero-enteric anastamotic stricture. Objective Initial Vital Signs Pulse Ox 96 09/03/16 21:41 - General physical appearance Present: well developed, well nourished, no distress - Respiratory Present: normal respiratory effort - Abdomen Present: soft - Labs 09/05/16 04:43 09/05/16 04:43 Diabetes panel 09/05/16 Range/Units 04:43 Sodium 138 (136-145) mEq/L Potassium 4.2 (3.5-4.5) mEq/L Chloride 108 (98-109) mEq/L Carbon Dioxide 21 (19-29) mEq/L BUN 19 (7-20) mg/dL Creatinine 1.11 (0.57-1.11) mg/dL Glucose 70 (70-99) mg/dL Calcium 8.6 (8.6-10.8) mg/dL AST 112 H (5-34) Units/L ALT 165 H (0-55) Units/L Alkaline Phosphatase 80 (38-126) Units/L Albumin 2.0 L (3.5-5.0) g/dL Calcium panel 09/05/16 Range/Units 04:43 Calcium 8.6 (8.6-10.8) mg/dL Albumin 2.0 L (3.5-5.0) g/dL Pituitary panel 09/05/16 Range/Units 04:43 Sodium 138 (136-145) mEq/L Potassium 4.2 (3.5-4.5) mEq/L Chloride 108 (98-109) mEq/L Carbon Dioxide 21 (19-29) mEq/L BUN 19 (7-20) mg/dL Creatinine 1.11 (0.57-1.11) mg/dL Glucose 70 (70-99) mg/dL Calcium 8.6 (8.6-10.8) mg/dL Adrenal panel 09/05/16 Range/Units 04:43 Sodium 138 (136-145) mEq/L Potassium 4.2 (3.5-4.5) mEq/L Chloride 108 (98-109) mEq/L Carbon Dioxide 21 (19-29) mEq/L BUN 19 (7-20) mg/dL Creatinine 1.11 (0.57-1.11) mg/dL Glucose 70 (70-99) mg/dL Calcium 8.6 (8.6-10.8) mg/dL Total Bilirubin 0.3 (0.2-1.2) mg/dL AST 112 H (5-34) Units/L ALT 165 H (0-55) Units/L Alkaline Phosphatase 80 (38-126) Units/L Albumin 2.0 L (3.5-5.0) g/dL Consult Discharge Plan - Plan Referrals: Ross Zaragoza MD [Primary Care Provider] -
[2016-09-05] MEDS: Diltiazem CD (24hr) 300 MG CAPSULE PO SCH (20:18)
[2016-09-05] MEDS: *HR* OxyCODONE Immed Rel 5 MG TABLET PO PRN (20:19)
[2016-09-05] MEDS: 0.9 % Sodium Chloride 1,000 ML IVC SCH (22:43)
[2016-09-06] MEDS ORDERED: *HR* Metoprolol 5 MG/5 ML VIAL IVP ONE (00:53)
[2016-09-06 05:57] LABS: Basophils # 0.1 K/mcL (0.0-0.2); Basophils % 0.4 %; Eosinophils # 0.1 K/mcL (0.0-0.6); Eosinophils % 1.1 %; Hematocrit 24.2 % (35.3-44.9); Hemoglobin 7.7 g/dL (11.5-15.4); Immature Granulocytes % 0.8 % (0-4); Lymphocytes # 1.8 K/mcL (0.6-4.6); Lymphocytes % 15.4 %; Mean Corpuscular HGB Conc 31.8 g/dL (31.6-35.5); Mean Corpuscular Hemoglobin 27.8 pg (28.0-33.3); Mean Corpuscular Volume 87.4 fL (83.0-100.0); Mean Platelet Volume 10.1 fL (9.4-12.4); Monocytes # 1.1 K/mcL (0.0-1.3); Neutrophils # 8.7 K/mcL (1.6-8.9); Platelet Count 469 K/mcL (140-400); Red Blood Count 2.77 M/mcL (3.82-4.97); Red Cell Distribution Width 15.4 % (11.5-14.5); Segmented Neutrophils % 73.3 %
[2016-09-06] MEDS: *HR* Heparin 5,000 UNIT/ML VIAL SQ SCH ×3 (06:00→23:46)
[2016-09-06 06:14] LABS: Alanine Aminotransferase 116 Units/L (0-55); Albumin 1.9 g/dL (3.5-5.0); Albumin/Globulin Ratio 0.4 (1.1-2.2); Alkaline Phosphatase 84 Units/L (38-126); Aspartate Amino Transferase 59 Units/L (5-34); BUN/Creatinine Ratio 15 (6-26); Bilirubin,Total 0.3 mg/dL (0.2-1.2); Blood Urea Nitrogen 14 mg/dL (7-20); Calcium 8.4 mg/dL (8.6-10.8); Carbon Dioxide 20 mEq/L (19-29); Chloride 111 mEq/L (98-109); Globulin 4.5 g/dL (2.4-3.5); Glucose 100 mg/dL (70-99); Osmolality,Calculated 293 (280-300); Potassium 3.8 mEq/L (3.5-4.5); Sodium 141 mEq/L (136-145); Total Protein 6.4 g/dL (6.0-8.3); eGFR For African Americans > 60 (> 60); eGFR For Non-African Americans 58 (> 60)
[2016-09-06] MEDS: Insulin LISPRO 300 UNITS/3 ML VIAL SQ SCH ×4 (10:12→21:40)
[2016-09-06] MEDS: Diltiazem CD (24hr) 300 MG CAPSULE PO SCH (10:13)
[2016-09-06] MEDS: Metoprolol 100 MG TABLET PO SCH (10:13)
[2016-09-06] MEDS: Fluticasone Propionate Nasal 50 MCG/SPRAY BOTTLE NS SCH (10:14)
[2016-09-06] MEDS: Saline Nasal Spray 44 ML BOTTLE NS SCH (10:14)
--- NOTE | 2016-09-06 11:23 | Electrocardiograph Report ---
[place] [address] Test Date: 2016-09-05 Pat Name: Toshia Figueredo Department: 111 Room: 2NE28 Gender: F Stamp Pad Maker: : 1945 Requested By: Paresh Mix Order Number: [id number] Reading MD: Chaparro Burrell DO Measurements Intervals [place] Rate: 163 P: NM: 0 QRS: -50 QRSD: 97 T: -1 QT: 260 QTc: 350 Interpretive Statements ATRIAL FLUTTER/TACHYCARDIA WITH RAPID VENTRICULAR RESPONSE MARKED LEFT AXIS DEVIATION SEPTAL MYOCARDIAL INFARCTION, OF INDETERMINATE AGE Electronically Signed On 09-06-2016 11:21:42 EST by Chaparro Burrell DO
[2016-09-06] MEDS: (Fish Oil 500 Mg Soft) PO SCH (12:38)
[2016-09-06] MEDS: Metoprolol XL (24 HR) Succ 50 MG TAB.ER.24H PO SCH (12:42)
[2016-09-06] MEDS: 0.9 % Sodium Chloride 1,000 ML IVC SCH (18:02)
[2016-09-06] MEDS: Acetaminophen 325 MG TABLET PO PRN (18:05)
--- NOTE | 2016-09-06 18:54 | Internal Med Progress Note ---
Date of Encounter: 09/06/16 Time of Encounter: 14:30 - Assessment and plan (1) Atrial fibrillation Current Visit: Yes Status: Acute Assessment and plan: Recurrent episode this AM. Not sure she is getting enough Metoprolol. Will make sure she is on extended release. Follow on tele tonight and if no further episodes anticipate d/c tomorrow. Qualifiers: Atrial fibrillation type: paroxysmal Qualified Code(s): I48.0 - Paroxysmal atrial fibrillation (2) Acute metabolic encephalopathy due to hypoglycemia Current Visit: Yes Status: Acute Assessment and plan: Resolved. (3) HTN (hypertension) Current Visit: Yes Status: Acute Assessment and plan: Blood pressure controlled on home dose. Qualifiers: Hypertension type: essential hypertension Qualified Code(s): I10 - Essential (primary) hypertension (4) UTI (urinary tract infection), bacterial Current Visit: Yes Status: Acute Assessment and plan: Due to Klebsiella. On IV abx. (5) Hypoglycemia associated with type 2 diabetes mellitus Current Visit: Yes Status: Resolved Assessment and plan: Monitoring blood sugar and covering as needed (6) Anemia Current Visit: Yes Status: Acute Assessment and plan: Monitoring. Qualifiers: Anemia type: other cause Other causes of anemia: chronic disease, neoplastic Qualified Code(s): D63.0 - Anemia in neoplastic disease (7) Presence of urostomy Current Visit: Yes Status: Chronic - Subjective Interval history: Ms Figueredo is currently in observation for complicated UTI with acute encephalopathy and paroxysmal atrial fibrillation. She is moderate to high risk due to risk for further cardiac issues. Ms Figueredo had another episode of parox a fib this morning. Currently she feels OK. No CP or SOB. No abd pain. Loopogram was OK yesterday. - Constitutional Vitals: Temp Pulse Resp BP Pulse Ox 98.6 F 67 15 116/59 97 09/06/16 16:00 09/06/16 16:00 09/06/16 16:00 09/06/16 16:00 09/06/16 16:00 General appearance: Present: cooperative, A&O X 3, answers questions appropriately - Head Head exam: Present: normocephalic - Eye Eye exam: Present: conjuntiva pink - ENT ENT exam: Present: mucous membranes moist - Respiratory Respiratory exam: Present: CTAB. Absent: rhonchi, wheezes - Cardiovascular Cardiovascular exam: Present: RRR. Absent: systolic murmur, tachycardia - GI/Abdominal GI/Abdominal exam: Present: soft. Absent: tenderness - Extremities Exam Extremities exam: Present: warm. Absent: pedal edema, tenderness - Neurological Exam Neurological exam: Present: alert, oriented X3, no focal deficits - Psychiatric Psychiatric exam: Present: normal affect, normal mood - Skin Skin exam: Present: dry, warm. Absent: rash Internal Medicine: Result - Labs CBC & Chem 7: 09/06/16 05:25 09/06/16 05:25 Labs: Short CBC 09/06/16 Range/Units 05:25 WBC 11.8 H (4.3-11.1) K/mcL Hgb 7.7 L (11.5-15.4) g/dL Hct 24.2 L (35.3-44.9) % Plt Count 469 H (140-400) K/mcL Neutrophils # 8.7 (1.6-8.9) K/mcL BMP 09/06/16 05:25 Sodium 141 Potassium 3.8 Chloride 111 H Carbon Dioxide 20 BUN 14 Creatinine 0.95 Glucose 100 H Calcium 8.4 L Liver Function 09/06/16 Range/Units 05:25 Total Bilirubin 0.3 (0.2-1.2) mg/dL AST 59 H (5-34) Units/L ALT 116 H (0-55) Units/L Alkaline Phosphatase 84 (38-126) Units/L Albumin 1.9 L (3.5-5.0) g/dL - ABG Interpretation ABG results: PT/INR, D-dimer PT 16.2 Seconds (9.4-12.1) H 09/04/16 01:54 Consult Discharge Plan - Plan Referrals: Ross Zaragoza MD [Primary Care Provider] -
[2016-09-06] MEDS: *HR* OxyCODONE Immed Rel 5 MG TABLET PO PRN (21:39)
[2016-09-07 04:00] LABS: Hematocrit 25.4 % (35.3-44.9); Hemoglobin 7.9 g/dL (11.5-15.4); Mean Corpuscular HGB Conc 31.1 g/dL (31.6-35.5); Mean Corpuscular Hemoglobin 27.3 pg (28.0-33.3); Mean Corpuscular Volume 87.9 fL (83.0-100.0); Mean Platelet Volume 9.8 fL (9.4-12.4); Platelet Count 490 K/mcL (140-400); Red Blood Count 2.89 M/mcL (3.82-4.97); Red Cell Distribution Width 15.4 % (11.5-14.5)
[2016-09-07 04:20] LABS: Alanine Aminotransferase 89 Units/L (0-55); Albumin/Globulin Ratio 0.4 (1.1-2.2); Alkaline Phosphatase 77 Units/L (38-126); Aspartate Amino Transferase 34 Units/L (5-34); BUN/Creatinine Ratio 13 (6-26); Bilirubin,Total 0.3 mg/dL (0.2-1.2); Blood Urea Nitrogen 11 mg/dL (7-20); Calcium 8.7 mg/dL (8.6-10.8); Carbon Dioxide 22 mEq/L (19-29); Chloride 112 mEq/L (98-109); Globulin 4.5 g/dL (2.4-3.5); Glucose 114 mg/dL (70-99); Magnesium 1.3 mg/dL (1.6-2.6); Osmolality,Calculated 296 (280-300); Potassium 3.8 mEq/L (3.5-4.5); Sodium 143 mEq/L (136-145); Total Protein 6.4 g/dL (6.0-8.3); eGFR For African Americans > 60 (> 60); eGFR For Non-African Americans > 60 (> 60)
[2016-09-07 04:23] LABS: Albumin 1.9 g/dL (3.5-5.0)
[2016-09-07] MEDS: *HR* Heparin 5,000 UNIT/ML VIAL SQ SCH ×3 (05:39→23:24)
[2016-09-07] MEDS: Insulin LISPRO 300 UNITS/3 ML VIAL SQ SCH ×4 (08:01→21:16)
[2016-09-07] MEDS: Diltiazem CD (24hr) 300 MG CAPSULE PO SCH (08:02)
[2016-09-07] MEDS: Metoprolol XL (24 HR) Succ 50 MG TAB.ER.24H PO SCH (08:02)
[2016-09-07] MEDS ORDERED: Magnesium Sulfate 2 GM in D5% in Water 100 ML IV ONE (08:54)
[2016-09-07] MEDS: Saline Nasal Spray 44 ML BOTTLE NS SCH (11:04)
[2016-09-07] MEDS: Fluticasone Propionate Nasal 50 MCG/SPRAY BOTTLE NS SCH (11:04)
[2016-09-07] MEDS: (Fish Oil 500 Mg Soft) PO SCH (11:05)
--- NOTE | 2016-09-07 14:22 | Internal Med Progress Note ---
Date of Encounter: 09/07/16 Time of Encounter: 09:00 - Assessment and plan (1) Hypomagnesemia Current Visit: Yes Status: Acute Assessment and plan: Replacing today. Recheck in AM. (2) Atrial fibrillation Current Visit: Yes Status: Acute Assessment and plan: Seems to be better with change in medication. Will continue XL 100mg today and reassess in AM. Anticipate d/c tomorrow if no further issues. Qualifiers: Atrial fibrillation type: paroxysmal Qualified Code(s): I48.0 - Paroxysmal atrial fibrillation (3) Acute metabolic encephalopathy due to hypoglycemia Current Visit: Yes Status: Resolved Assessment and plan: Resolved. (4) HTN (hypertension) Current Visit: Yes Status: Acute Assessment and plan: Blood pressure controlled on home dose. Qualifiers: Hypertension type: essential hypertension Qualified Code(s): I10 - Essential (primary) hypertension (5) UTI (urinary tract infection), bacterial Current Visit: Yes Status: Acute Assessment and plan: Due to Klebsiella. On IV abx. Will decide if needs PO abx at discharge. (6) Hypoglycemia associated with type 2 diabetes mellitus Current Visit: Yes Status: Resolved Assessment and plan: Monitoring blood sugar and covering as needed (7) Anemia Current Visit: Yes Status: Acute Assessment and plan: Monitoring. Qualifiers: Anemia type: other cause Other causes of anemia: chronic disease, neoplastic Qualified Code(s): D63.0 - Anemia in neoplastic disease (8) Presence of urostomy Current Visit: Yes Status: Chronic - Subjective Interval history: Ms Figueredo is currently in observation for complicated UTI with acute encephalopathy and paroxysmal atrial fibrillation. She is moderate to high risk due to risk for further cardiac issues. Ms Figueredo did not have paroxysmal a fib after extra Metoprolol. She still feels very weak and not quite ready to go. She has had some loose stool as well. No fever or chills. No CP or cough. - Constitutional Vitals: Temp Pulse Resp BP Pulse Ox 98.0 F 86 18 133/66 96 09/07/16 11:52 09/07/16 11:52 09/07/16 11:52 09/07/16 11:52 09/07/16 11:52 General appearance: Present: cooperative, A&O X 3, answers questions appropriately - Head Head exam: Present: normocephalic - Eye Eye exam: Present: conjuntiva pink - ENT ENT exam: Present: mucous membranes moist - Respiratory Respiratory exam: Present: decreased breath sounds, CTAB. Absent: rhonchi, wheezes - Cardiovascular Cardiovascular exam: Present: RRR. Absent: tachycardia - GI/Abdominal GI/Abdominal exam: Present: soft. Absent: mass, tenderness - Extremities Exam Extremities exam: Present: warm. Absent: pedal edema, tenderness - Neurological Exam Neurological exam: Present: alert, oriented X3 - Psychiatric Psychiatric exam: Present: normal affect, normal mood - Skin Skin exam: Present: dry, warm. Absent: rash Internal Medicine: Result - Labs CBC & Chem 7: 09/07/16 03:41 09/07/16 03:41 Labs: Short CBC 09/07/16 Range/Units 03:41 WBC 12.4 H (4.3-11.1) K/mcL Hgb 7.9 L (11.5-15.4) g/dL Hct 25.4 L (35.3-44.9) % Plt Count 490 H (140-400) K/mcL BMP 09/07/16 03:41 Sodium 143 Potassium 3.8 Chloride 112 H Carbon Dioxide 22 BUN 11 Creatinine 0.85 Glucose 114 H Calcium 8.7 Liver Function 09/07/16 Range/Units 03:41 Total Bilirubin 0.3 (0.2-1.2) mg/dL AST 34 (5-34) Units/L ALT 89 H (0-55) Units/L Alkaline Phosphatase 77 (38-126) Units/L Albumin 1.9 L (3.5-5.0) g/dL - ABG Interpretation ABG results: PT/INR, D-dimer PT 16.2 Seconds (9.4-12.1) H 09/04/16 01:54 Consult Discharge Plan - Plan Referrals: Ross Zaragoza MD [Primary Care Provider] -
[2016-09-07] MEDS: Acetaminophen 325 MG TABLET PO PRN (21:14)
[2016-09-08 04:48] LABS: Hematocrit 26.2 % (35.3-44.9); Hemoglobin 8.2 g/dL (11.5-15.4); Mean Corpuscular HGB Conc 31.3 g/dL (31.6-35.5); Mean Corpuscular Hemoglobin 27.5 pg (28.0-33.3); Mean Corpuscular Volume 87.9 fL (83.0-100.0); Platelet Count 531 K/mcL (140-400); Red Blood Count 2.98 M/mcL (3.82-4.97); Red Cell Distribution Width 15.6 % (11.5-14.5)
[2016-09-08 05:13] LABS: BUN/Creatinine Ratio 8 (6-26); Blood Urea Nitrogen 7 mg/dL (7-20); Calcium 8.9 mg/dL (8.6-10.8); Carbon Dioxide 24 mEq/L (19-29); Chloride 110 mEq/L (98-109); Glucose 88 mg/dL (70-99); Magnesium 1.7 mg/dL (1.6-2.6); Osmolality,Calculated 291 (280-300); Potassium 3.7 mEq/L (3.5-4.5); Sodium 142 mEq/L (136-145); eGFR For African Americans > 60 (> 60); eGFR For Non-African Americans > 60 (> 60)
[2016-09-08] MEDS: *HR* Heparin 5,000 UNIT/ML VIAL SQ SCH (06:13)
[2016-09-08] MEDS: (Fish Oil 500 Mg Soft) PO SCH (09:37)
[2016-09-08] MEDS: Diltiazem CD (24hr) 300 MG CAPSULE PO SCH (09:40)
[2016-09-08] MEDS: Metoprolol XL (24 HR) Succ 50 MG TAB.ER.24H PO SCH (09:40)
[2016-09-08] MEDS: Saline Nasal Spray 44 ML BOTTLE NS SCH (09:41)
[2016-09-08] MEDS: Fluticasone Propionate Nasal 50 MCG/SPRAY BOTTLE NS SCH (09:41)
[2016-09-08] MEDS: Insulin LISPRO 300 UNITS/3 ML VIAL SQ SCH (09:42)
--- NOTE | 2016-09-08 09:50 | Discharge Summary ---
<Tristen Bustamante - Last Filed: 09/08/16 15:11> Date of Encounter: 09/08/16 Time of Encounter: 09:30 - Discharge Diagnosis (1) Hydronephrosis Priority: Primary Status: Acute Qualifiers: Hydronephrosis type: unspecified Qualified Code(s): N13.30 - Unspecified hydronephrosis (2) Hypoglycemia associated with type 2 diabetes mellitus Priority: Secondary Status: Resolved (3) UTI (urinary tract infection), bacterial Priority: Secondary Status: Acute (4) HTN (hypertension) Priority: Secondary Status: Chronic Qualifiers: Hypertension type: essential hypertension Qualified Code(s): I10 - Essential (primary) hypertension (5) DVT prophylaxis Priority: Secondary Status: Acute (6) CL (acute kidney injury) Priority: Secondary Status: Resolved (7) Atrial fibrillation Priority: Secondary Status: Chronic Qualifiers: Atrial fibrillation type: paroxysmal Qualified Code(s): I48.0 - Paroxysmal atrial fibrillation - Discharge Medications Prescriptions: Metformin [Glucophage] 500 mg PO 0800 #30 tablet Home Medications: Multivitamin [Multi-Day Vitamins] 1 each PO DAILY 04/18/15 [History] [place] Oil/[place]-3 Fatty Acids [Fish Oil 500 mg Softgel] 1 each PO DAILY [History] Fluticasone Propionate Nasal [Flonase] 1 spray NS DAILY 08/20/15 [History] Zolpidem [Ambien] 5 mg PO Q6H PRN 08/20/15 [History] Docusate Sodium [Stool Softener] 100 mg PO BID PRN 06/10/16 [History] Losartan Potassium [Cozaar] 100 mg PO DAILY 09/03/16 [History] Aspirin 81 mg PO DAILY 09/04/16 [History] Loratadine [Claritin] 10 mg PO DAILY 09/04/16 [History] Metoprolol XL (24 HR) Succ [Toprol Xl] 50 mg PO DAILY 09/04/16 [History] OxyCODONE ER (12 HR) [OxyCONTIN] 20 mg PO BID 09/04/16 [History] Oxycodone HCl 5 mg PO Q6H PRN 09/04/16 [History] Oxycodone HCl/Acetaminophen [Percocet 5-325 mg Tablet] 1 each PO Q6H PRN [History] Metformin [Glucophage] 500 mg PO 0800 #30 tablet 09/08/16 [Rx] Allergies/Adverse Reactions: Allergies Penicillins Allergy (Verified 09/04/16 11:39) Rash Date of admission: 09/03/16 21:20 Primary care physician: Armando Javed Consults: 09/04/16 01:25 Consult to Occupational Therapy [CONS] Routine Comment: Evaluate, develop and implement POC Consult to Physical Therapy [CONS] Routine Comment: Evaluate, develop and implement POC 09/05/16 08:37 Consult to Urology [CONS] Routine Consulting Provider: Urology Saima Reason for Consult: hydronephrosis Call Completed: Yes Discharging clinician: Tristen Bustamante Anticipated date of discharge: 09/08/16 - Patient Status Disposition: Home, Self-Care Condition: Good Functional capacity at discharge: independent ambulation Overall status at discharge: patient is progressing back to baseline - Discharge Instructions Instructions: Metformin (By mouth), Atrial Fibrillation (DC), Colostomy Care ( DC), Colostomy Care (GEN), Urostomy Care (DC), Urostomy Care (GEN), Urinary Tract Infection in Women (DC), Epstein Catheter Placement and Care (DC), Epstein Catheter Placement and Care (GEN), How to Check Your Blood Sugar (DC), How to Check Your Blood Sugar (GEN), Diabetes Mellitus Type 2 in Adults (DC), Diabetes Mellitus Type 2 in Adults (GEN), Managing Diabetes During Sick Days (DC), Managing Diabetes During Sick Days (GEN), Chronic Hypertension (DC), Urinary Leg Bag (GEN) Follow Up With: Ross Zaragoza MD [Primary Care Provider] - 09/11/16 3:00 pm - Diet and Activity Activity: increase activity as tolerated Diet: diabetic diet Hospital course: Ms. Figueredo is a 70 year old female with history of colorectal cancer, hypertension, diabetes who woke up on day of admission with fatigue, unable to move and blurry vision. EMS found patient to have a blood sugar of 30. She is clinically given 1 amp of D50 and improved dramatically. Patient was taken to [facility] [place]. Over there she was found to have a left total cell count of 22 and hemoglobin of 8.8. Patient was stabilized there and transferred to [facility]. She was noted to have a UTI with cultures growing Klebsiella sensitive.Patient was started on ceftriaxone.Furthermore patient's oncologist ordered a CT abdomen which showed bilateral hydronephrosis. At this time patient had great urine output out of her urostomy. Urology was consultative for further evaluation. She was imaged with a loopogram which was negative for any stenosis of the ileal conduit. During her stay on the on second day of admission patient had a bout of atrial fibrillation. Patient has history of paroxysmal A. fib. She is not under any anticoagulation secondary to recurrent nosebleeds. At that time patient was given metoprolol and converted to sinus rhythm. For diabetes patient takes glimepiride outpatient. Glimepiride has a higher chance of hypoglycemia. At discharge (discontinued and patient was started on metformin. Patient should follow up within 7 days of discharge with PCP to increase dose of metformin. Today patient vitals are stable. She has great oral intake. She is able to ambulate independently. Patient is stable for discharge. - Time Spent with Patient Total time spent providing and/or coordinating discharge services: - Constitutional Vitals: Temp Pulse Resp BP Pulse Ox 97.8 F 90 14 169/80 93 L 09/08/16 07:38 09/08/16 07:38 09/08/16 07:38 09/08/16 07:38 09/08/16 07:38 General appearance: Present: cooperative, A&O X 3, answers questions appropriately - Head Head exam: Present: atraumatic, normocephalic - Eye Eye exam: Present: PERRL, conjuntiva pink, sclera anicteric Pupils: Present: PERRL - Neck Neck exam general surgery: Present: supple, trachea midline. Absent: lymphadenopathy - Respiratory Respiratory exam: Present: CTAB. Absent: accessory muscle use, rales, rhonchi, wheezes - Cardiovascular Cardiovascular exam: Present: RRR, +S1, +S2. Absent: diastolic murmur, gallop, rubs, systolic murmur - GI/Abdominal GI/Abdominal exam: Present: normal bowel sounds, soft, no peritoneal signs. Absent: distended, tenderness Additional comments: urostomy and colostomy outputting well. - Extremities Exam Extremities exam: Present: warm, radial pulses palpable and symetrical. Absent : calf tenderness, cyanotic, pedal edema - Neurological Exam Neurological exam: Present: CN II-XII intact, oriented X3, no focal deficits. Absent: pronater drift, facial droop, speech deficit - Skin Skin exam: Present: dry, intact <Paresh Mix - Last Filed: 09/08/16 16:12> Date of Encounter: 09/08/16 - Discharge Diagnosis (1) Hypomagnesemia Priority: Secondary Status: Acute (2) Atrial fibrillation Priority: Secondary Status: Acute Qualifiers: Atrial fibrillation type: paroxysmal Qualified Code(s): I48.0 - Paroxysmal atrial fibrillation (3) Acute metabolic encephalopathy due to hypoglycemia Priority: Primary Status: Resolved (4) HTN (hypertension) Status: Chronic Qualifiers: Hypertension type: essential hypertension Qualified Code(s): I10 - Essential (primary) hypertension (5) UTI (urinary tract infection), bacterial Status: Acute (6) Hypoglycemia associated with type 2 diabetes mellitus Status: Resolved (7) Anemia Priority: Secondary Status: Acute Qualifiers: Anemia type: other cause Other causes of anemia: chronic disease, neoplastic Qualified Code(s): D63.0 - Anemia in neoplastic disease (8) Presence of urostomy Priority: Secondary Status: Chronic Date of admission: 09/03/16 21:20 Primary care physician: Armando Javed Consults: 09/04/16 01:25 Consult to Occupational Therapy [CONS] Routine Comment: Evaluate, develop and implement POC Consult to Physical Therapy [CONS] Routine Comment: Evaluate, develop and implement POC 09/05/16 08:37 Consult to Urology [CONS] Routine Consulting Provider: Urology Saima Reason for Consult: hydronephrosis Call Completed: Yes Hospital course: Ms. Figueredo is a 70 year old female - Time Spent with Patient Total time spent providing and/or coordinating discharge services: - Constitutional Vitals: Temp Pulse Resp BP Pulse Ox 97.8 F 90 14 135/60 93 L 09/08/16 07:38 09/08/16 07:38 09/08/16 07:38 09/08/16 11:27 09/08/16 07:38 - Attending Attestation I examined this patient and my medical decision-making was reviewed with the Resident Physician on 09/08/16. I agree with the documented findings, disposition and treatment plan as described except to the extent set forth below. Ms. Figueredo feels OK today. She is having some loose stool but says it happens occasionally and responds to immodium. She is ready to go home. Exam Alert. Comfortable Heart reg Lungs no wheeze Plan Pt is afebrile with stable vitals Ready for d/c home Follow up with PCP and oncologist
[2016-09-08 11:30] VITALS: BP 135/60
== END 2016-09-08 14:49 | disposition home or self-care (01) ==
LOC: 2NENU
PROVIDERS: ADMIT Internal Medicine; ATTEND Internal Medicine

== ENCOUNTER 2016-10-08 16:20 | Inpatient (IN) ==
--- NOTE | 2016-10-08 16:34 | Emergency Department Note ---
START Narrative - START START: patient presents from cement handler's office found to be in A. fib with rvr. Has a history of afib that comes and goes. Today she has been saying in afib. Saw here cement handler today who sent her to the ER. Denies chest pain or shortness of breath. No prior history of ablation. She was recently increased on metoprolol from 50mg daily to 100-mg.
--- NOTE | 2016-10-08 16:39 | Emergency Department Note ---
Disposition Clinical Impression: Atrial fibrillation Qualifiers: Atrial fibrillation type: paroxysmal Qualified Code(s): I48.0 - Paroxysmal atrial fibrillation Disposition: Admitted As Inpatient Condition: Good Forms: ED Satisfaction Letter Arrhythmia/Palpitations HPI - General Chief Complaint: ED Arrhythmia/Palpitations Stated Complaint: A-Fib RVR Time Seen by Provider: 10/08/16 16:30 Source: patient Limitations: no limitations Nursing Notes Reviewed: Yes Vital Signs Reviewed: Yes - History of Present Illness Pt Subjective Complaint: rapid heart beat Onset (ago): day(s) (3) Duration: constant Severity: moderate, similar to previous episodes Context: occurred during rest Arrhythmia History: atrial fibrillation Associated symptoms: Reports: other (dizzy) Treatments prior to arrival: beta-benny - Related Data Home Medications Medication Instructions Recorded Confirmed Multivitamin [Multi-Day Vitamins] 1 each PO DAILY 04/18/15 09/17/16 [place] Oil/[place]-3 Fatty Acids 1 each PO DAILY 04/18/15 09/17/16 [Fish Oil 500 mg Softgel] Fluticasone Propionate Nasal 1 spray NS DAILY 08/20/15 09/17/16 [Flonase] Zolpidem [Ambien] 5 mg PO Q6H PRN 08/20/15 09/17/16 Docusate Sodium [Stool Softener] 100 mg PO BID PRN 06/10/16 09/17/16 Losartan Potassium [Cozaar] 100 mg PO DAILY 09/03/16 09/17/16 Aspirin 81 mg PO DAILY 09/04/16 09/17/16 Loratadine [Claritin] 10 mg PO DAILY 09/04/16 09/17/16 Metoprolol XL (24 HR) Succ [Toprol 50 mg PO DAILY 09/04/16 09/17/16 Xl] Glimepiride [Amaryl] 4 mg PO DAILY 09/17/16 09/17/16 Previous Rx's Medication Instructions Recorded Hydrocortisone 1% OINT [Cortaid] 1 appl TP BID #1 tube 09/17/16 Oxycodone HCl 2 tab PO Q6H PRN #240 capsule 09/17/16 Allergies Allergy/AdvReac Type Severity Reaction Status Date / Time Penicillins Allergy Rash Verified 09/04/16 11:39 All systems ED: reviewed and negative except as stated. Constitutional: Denies: fever, chills Cardiovascular: Reports: palpitations. Denies: chest pain Past Medical History - Past Medical History Source: patient, old records reviewed, nursing notes reviewed Medical history: Reports: arthritis, atrial fibrillation, cancer, diabetes, GERD , glaucoma, hypertension, osteoporosis Surgical history: Reports: cancer surgery, colostomy, other Psychiatric history: Reports: no psych history - Social History Smoking Status: Former smoker Smokeless Tobacco Status: No Alcohol use: Reports: none Drug use: Reports: none Physical Exam - General Limitations: no limitations General appearance: alert - Head Head exam: atraumatic, normocephalic, normal inspection - Eye Eye exam: Present: normal appearance, PERRL, EOMI - Expanded Eye Exam Pupils: Left: reactive - ENT ENT exam: normal exam, normal oropharynx, mucous membranes moist - Expanded ENT Exam External ear exam: Present: normal external inspection Mouth exam: Present: normal external inspection Teeth exam: Present: normal inspection Throat exam: Present: normal inspection - Neck Neck exam: Present: normal inspection, full ROM, trachea midline - Chest Chest inspection: Present: normal inspection, symmetric chest wall rise - Respiratory Respiratory exam: Present: normal lung sounds bilaterally - Cardiovascular Cardiovascular exam: Present: tachycardia, irregular rhythm - Abdominal Exam Abdominal exam: Present: soft, Non-Tender. Absent: tenderness, distention, guarding, rebound, rigidity - Extremities Exam Extremities exam: Present: normal inspection, full ROM. Absent: tenderness, pedal edema - Expanded Upper Extremity Exam Shoulder exam: Present: normal inspection, full ROM Arm exam: Present: normal inspection, full ROM Elbow exam: Present: normal inspection, full ROM Forearm/Wrist exam: Present: normal inspection, full ROM Hand exam: Present: normal inspection, full ROM Vascular exam: Normal: capillary refill, radial pulse - Expanded Lower Extremity Exam Hip/Pelvis exam: Present: normal inspection, full ROM Upper leg exam: Present: normal inspection, full ROM Knee exam: Present: normal inspection, full ROM Lower leg exam: Present: normal inspection, full ROM Ankle exam: Present: normal inspection, full ROM Foot/toe exam: Present: normal inspection, full ROM Neurovascular/Tendon exam: Absent: motor deficit, sensory deficit, tendon deficit - Back Exam Back exam: Present: normal inspection, full ROM. Absent: tenderness - Neurological Exam Neurological exam: Present: alert, oriented X3 - Expanded Neurological Exam Patient oriented to: Present: person, place, time Coma Scale Eye Opening: Spontaneous Coma Scale Motor Response: Obeys Commands Coma Scale Verbal Response: Oriented Coma Scale Total: 15 - Psychiatric Psychiatric exam: Present: normal affect, normal mood - Skin Skin exam: Present: warm, dry, intact, normal color Course Vital Signs Temperature 98.6 F 10/08/16 16:22 Pulse Rate 149 10/08/16 16:22 Respiratory Rate 18 10/08/16 16:22 Blood Pressure 126/60 10/08/16 16:22 O2 Sat by Pulse Oximetry 100 10/08/16 16:22 Temperature 98.6 F 10/08/16 16:22 Pulse Rate 169 10/08/16 17:43 Respiratory Rate 18 10/08/16 17:43 Blood Pressure 111/60 10/08/16 17:43 O2 Sat by Pulse Oximetry 98 10/08/16 17:43 Oxygen Delivery Oxygen Delivery Room Air Arrhythmia/Palpitations - Differential Diagnosis Differential Diagnosis: Likely: palpitations, artial arrhythmia, ventricular premature beats, supraventricular tachycardia, ventricular tachycardia, metabolic/electrolyte disturbance, undetermined arrhythmia - Lab Data Lab Results 10/08/16 10/08/16 10/08/16 Range/Units 17:03 17:03 17:03 PT 14.4 H (9.4-12.1) Seconds INR 1.3 APTT 20.3 L (26.0-36.0) Seconds Troponin I 0.02 (0-0.03) ng/mL Specimen Rejected Hemolyzed Critical Care Time Critical Care Time: Yes Total Critical Care Time: 35 Attestation: Critical care performed: Time is exclusive of separately billable procedures. Time includes: direct patient care, patient reassessment, coordination of patient care, interpretation of data (laboratory data, radiology data, and respiratory data), review of patient's medical records, medical consultation and documentation of patient care. Procedures included in critical care time: Procedures excluded from critical care time:
[2016-10-08] MEDS ORDERED: 0.9 % Sodium Chloride 500 ML IV.SOLN IVC ONE (16:42)
[2016-10-08] MEDS ORDERED: *HR* Enoxaparin 80 MG/0.8 ML SYRINGE SQ STA (16:49)
[2016-10-08 17:24] LABS: INR 1.3; Prothrombin Time 14.4 Seconds (9.4-12.1)
[2016-10-08 17:27] LABS: Activated Partial Thrombo Time 20.3 Seconds (26.0-36.0)
[2016-10-08 18:21] LABS: Albumin 2.2 g/dL (3.5-5.0); Albumin/Globulin Ratio 0.4 (1.1-2.2); Bilirubin,Total 0.5 mg/dL (0.2-1.2); Calcium 8.4 mg/dL (8.6-10.8); Globulin 5.2 g/dL (2.4-3.5); Total Protein 7.4 g/dL (6.0-8.3)
[2016-10-08] MEDS ORDERED: 0.9 % Sodium Chloride 500 ML IVC ONE (18:27)
[2016-10-08 18:31] LABS: Basophils # 0.1 K/mcL (0.0-0.2); Basophils % 0.4 %; Eosinophils % 0.2 %; Hematocrit 25.9 % (35.3-44.9); Immature Granulocytes % 0.6 % (0-4); Immature Platelets 5.3 % (1.1-6.1); Lymphocytes # 1.2 K/mcL (0.6-4.6); Lymphocytes % 9.2 %; Mean Corpuscular HGB Conc 30.9 g/dL (31.6-35.5); Mean Corpuscular Hemoglobin 27.2 pg (28.0-33.3); Mean Corpuscular Volume 88.1 fL (83.0-100.0); Mean Platelet Volume 10.8 fL (9.4-12.4); Monocytes # 0.9 K/mcL (0.0-1.3); Neutrophils # 10.6 K/mcL (1.6-8.9); Platelet Count 422 K/mcL (140-400); Red Blood Count 2.94 M/mcL (3.82-4.97); Red Cell Distribution Width 17.7 % (11.5-14.5); Segmented Neutrophils % 82.6 %
[2016-10-08] MEDS ORDERED: Naloxone 0.4 MG/ML INJ IVP PRN (23:33)
[2016-10-08] MEDS ORDERED: Saline Nasal Spray 44 ML BOTTLE NS PRN (23:37)
[2016-10-08] MEDS ORDERED: 0.9 % Sodium Chloride 1,000 ML IVC SCH (23:45)
--- NOTE | 2016-10-09 00:09 | Internal Med History&Physical ---
<Shell Gill - Last Filed: 10/09/16 00:28> Date of Encounter: 10/08/16 Time of Encounter: 23:45 Assessment and Plan (1) Atrial fibrillation with rapid ventricular response Current visit: No Status: Acute Patient found to be in A. fib with RVR with heart rate in the 160s on presentation. She was initiated on a diltiazem drip heart rate was down in the low 100s on my exam. She was given weight-based Lovenox for anticoagulation in the emergency department. Titrate diltiazem to heart rate less than 90. Continue home dose of metoprolol 100 mg daily. 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 (2) CL (acute kidney injury) Current visit: No Status: Acute Creatinine 1.8, up from baseline of 0.8. Patient has ileal conduit/urostomy. On prior admission she was found to have hydronephrosis with no obvious obstruction and UTI. Hold losartan and avoid NSAIDs and nephrotoxins IV fluids 0.9NS at 100mL/hr UA with culture ordered Retroperitoneal ultrasound ordered. Recheck chemistry in the morning. (3) HTN (hypertension) Current visit: No Status: Chronic Hold losartan due to CL. Patient on Diltiazem drip for Afib. Continue home dose of metoprolol 100mg daily. Qualifiers: Hypertension type: essential hypertension Qualified Code(s): I10 - Essential (primary) hypertension (4) Anemia Current visit: No Status: Acute Patient with Hgb of 8.0, consistent with recent levels. Patient denies any recent bleeding episodes. No indication for transfusion at this time. Repeat CBC in the morning. Qualifiers: Anemia type: other cause Other causes of anemia: chronic disease, neoplastic Qualified Code(s): D63.0 - Anemia in neoplastic disease (5) Presence of urostomy Current visit: No Status: Chronic Urostomy care ordered. (6) Type 2 diabetes mellitus Current visit: Yes Status: Acute check blood sugars ACHS low dose sliding scale insulin ACHS hypoglycemic protocol Qualifiers: Diabetes mellitus complication status: with unspecified complications Diabetes mellitus exterminator termite insulin use: without alf use Qualified Code( s): E11.8 - Type 2 diabetes mellitus with unspecified complications (7) DVT prophylaxis Current visit: No Status: Acute Ambulate with assistance anti-embolic stockings Patient given one dose of weight-based lovenox in ED and will be initiated on anti-coagulation for afib by cardiology tomorrow. Internal Medicine - H&P: HPI Chief complaint: palpitations Admitted From: Emergency Dept Plans for Post Hospital Care: Home History of present illness: Ms. Figueredo is a 71 year old female with hypertension, atrial fibrillation, recurrent colorectal cancer status post chemotherapy and radiation as well as colectomy with colostomy, pelvic exoneration surgery with cystectomy and ileal conduit urostomy was sent to the emergency department today by her engraver optical frames when she was found to be in A. fib with RVR with heart rate in the 160s. Patient reports that she was feeling lightheaded, nearly fainted yesterday, had shortness of breath, nausea, as well as feeling like her heart was racing and she had palpitations. She was able to get an appointment with her engraver optical frames , after Lon who sent her over to the emergency department. She denies any fever, chills, sweats, body aches. She denies any chest pain. She denies any change in urine output or stool output from her ostomies. Evaluation in the emergency department included chest x-ray which showed no acute cardiopulmonary disease, troponin was negative at 0.02, EKG showed A. fib with RVR and heart rate of 164. She was also found to have acute kidney injury with creatinine of 1.8 up from baseline of 0.8. She is anemic with hemoglobin of 8.0 consistent with recent results. Blood cell count was mildly elevated at 12.9. M, patient is alert and oriented, in no acute distress. Heart has irregular, tachycardic rhythm. Lungs are clear bilaterally to auscultation. Urostomy is beefy red with cloudy yellow output. Colostomy also is beefy red. Past Med Surg Social Fam HX - Past Medical History Medical history: arthritis, atrial fibrillation, cancer (recurrent colorectal cancer), diabetes, GERD, glaucoma, hypertension, osteoporosis Psychiatric history: no psych history - Past Surgical History Surgical History: cancer surgery (colectomy with colostomy, pelvic exoneration with ROE/BSO and cystecomy with urostomy), colostomy, other - Social History Smoking Status: Former smoker Smokeless Tobacco Status: No Alcohol use: none Drug use: none - Family History Brother Living Status: Still Living Hx Family Cardiac Disorders: Yes (AFIB) Hx Family Respiratory Disorders: No Hx Family Cancer: No Hx Family GI Disorders: No Hx Family Endocrine Disorder: No Hx Family Neuromuscular Disorders: No Hx Family Neurologic Disorders: No Hx Family HEENT Disorders: No Hx Family Autoimmune Disorders: No Sister Living Status: Still Living Hx Family Cardiac Disorders: Yes (AFiB) Hx Family Respiratory Disorders: No Hx Family Cancer: No Hx Family GI Disorders: No Hx Family Endocrine Disorder: Yes (DM) Hx Family Neuromuscular Disorders: No Hx Family Neurologic Disorders: No Hx Family HEENT Disorders: No Hx Family Autoimmune Disorders: No Son Living Status: Still Living Hx Family Cardiac Disorders: Yes (HTN) Hx Family Respiratory Disorders: No Hx Family Cancer: No Hx Family GI Disorders: No Hx Family Endocrine Disorder: Yes (DM) Hx Family Neuromuscular Disorders: No Hx Family Neurologic Disorders: No Hx Family HEENT Disorders: No Hx Family Autoimmune Disorders: No Mother Family Member Ethnicity: Unknown Living Status: Hx Family Cardiac Disorders: Yes Hx Family Respiratory Disorders: No Hx Family Cancer: No Hx Family GI Disorders: No Hx Family Endocrine Disorder: Yes Hx Family Neuromuscular Disorders: Yes Hx Family Neurologic Disorders: No Hx Family HEENT Disorders: No Hx Family Autoimmune Disorders: No Father Adopted: No Family Member Ethnicity: Non- Living Status: Hx Family Cardiac Disorders: Yes Hx Family Respiratory Disorders: No Hx Family Cancer: No Hx Family GI Disorders: No Hx Family Endocrine Disorder: No Hx Family Neuromuscular Disorders: No Hx Family Neurologic Disorders: No Hx Family HEENT Disorders: No Hx Family Autoimmune Disorders: No Internal Medicine - H&P: Meds Multivitamin [Multi-Day Vitamins] 1 each PO DAILY 04/18/15 [History] [place] Oil/[place]-3 Fatty Acids [Fish Oil 500 mg Softgel] 1 each PO DAILY [History] Fluticasone Propionate Nasal [Flonase] 1 spray NS DAILY 08/20/15 [History] Zolpidem [Ambien] 5 mg PO HS 08/20/15 [History] Docusate Sodium [Stool Softener] 100 mg PO BID PRN 06/10/16 [History] Losartan Potassium [Cozaar] 100 mg PO DAILY 09/03/16 [History] Aspirin 81 mg PO DAILY 09/04/16 [History] Loratadine [Claritin] 10 mg PO DAILY 09/04/16 [History] Hydrocortisone 1% OINT [Cortaid] 1 appl TP BID #1 tube 09/17/16 [Rx] Oxycodone HCl 2 tab PO Q6H PRN #240 capsule 09/17/16 [Rx] Glimepiride [Amaryl] 2 mg PO QAM 10/08/16 [History] Metoprolol Succinate 100 mg PO DAILY 10/08/16 [History] Nystatin Cream [Mycostatin Cream] 1 appl TP BID 10/08/16 [History] Saline Nasal [place] [[place] Nasal [place]] 2 spray NS Q6H PRN 10/08/16 [History] Warfarin [Coumadin] 5 mg PO DAILY 10/08/16 [History] Allergies Penicillins Allergy (Verified 09/04/16 11:39) Rash All Systems PM: A 10-system review of systems was performed and is negative for pertinent findings except as documented above in the HPI. - Constitutional Constitutional: no chills, no fever(s), no night sweats - EENT Eyes: no change in vision, no discharge, no pain, no photophobia Ears: no ear discharge, no ear pain, no tinnitus Nose, mouth and throat: no dysphagia, no nasal discharge, no neck pain, no sore throat - Cardiovascular Cardiovascular ROS IM: dyspnea, dyspnea on exertion, irregular heart rhythm, lightheadedness, palpitations, no chest pain, no diaphoresis, no syncope - Respiratory Respiratory: dyspnea, dyspnea on exertion, no cough, no wheezing, no excessive phlegm production - Gastrointestinal Gastrointestinal: no abdominal pain, no diarrhea, no hematemesis, no hematochezia, no melena, no nausea, no vomiting - Genitourinary Genitourinary: no change in urinary stream, no dysuria, no flank pain, no hematuria - Musculoskeletal Musculoskeletal ROS IM: no numbness, no tingling - Integumentary Integumentary IM: no rash, no unusual bruising - Neurological Neurological ROS: no confusion, no convulsions, no focal weakness, no numbness, no tingling, no tremor(s) - Hematologic/Lymphatic Hematologic/Lymphatic: no easy bruising - Constitutional Vitals: Temp Pulse Resp BP Pulse Ox 98.7 F 94 18 132/78 100 10/08/16 20:04 10/08/16 20:04 10/08/16 20:04 10/08/16 20:04 10/08/16 20:04 General appearance: Present: A&O X 3, pleasant, no acute distress - Head Head exam: Present: atraumatic, normocephalic - Eye Eye exam: Present: PERRL, conjuntiva pink, sclera anicteric Pupils: Present: PERRL - Neck Neck exam general surgery: Present: supple, trachea midline. Absent: lymphadenopathy - Respiratory Respiratory exam: Present: CTAB. Absent: accessory muscle use, rales, rhonchi, wheezes - Cardiovascular Cardiovascular exam: Present: irregular rhythm, +S1, +S2, tachycardia. Absent: diastolic murmur, gallop, rubs, systolic murmur - GI/Abdominal GI/Abdominal exam: Present: normal bowel sounds, soft, no peritoneal signs. Absent: distended, tenderness Additional comments: patient with colostomy in LLQ, ostomy is beefy red, no output currently in bag. Urostomy to right of umbilicus; ostomy is beefy red, with cloudy yellow output in bag. - Extremities Exam Extremities exam: Present: pedal edema (trace BLE edema), warm, radial pulses palpable and symetrical. Absent: calf tenderness, cyanotic - Back Exam Back exam: Absent: CVA tenderness (L), CVA tenderness (R) Additional comments: erythema in gluteal fold, patient reports is related to radiation burn. - Neurological Exam Neurological exam: Present: CN II-XII intact, oriented X3, no focal deficits. Absent: facial droop, speech deficit - Skin Skin exam: Present: dry, intact Internal Med - H&P Results - Labs CBC & Chem 7: 10/08/16 17:54 10/08/16 17:54 Labs: All Lab Results (24 Hours) 10/08/16 10/08/16 10/08/16 Range/Units 17:03 17:03 17:03 WBC (4.3-11.1) K/mcL RBC (3.82-4.97) M/mcL Hgb (11.5-15.4) g/dL Hct (35.3-44.9) % MCV (83.0-100.0) fL MCH (28.0-33.3) pg MCHC (31.6-35.5) g/dL RDW (11.5-14.5) % Plt Count (140-400) K/mcL MPV (9.4-12.4) fL Immature Gran % (0-4) % Seg Neutrophils % % Lymphocytes % % Monocytes % % Eosinophils % % Basophils % % Neutrophils # (1.6-8.9) K/mcL Lymphocytes # (0.6-4.6) K/mcL Monocytes # (0.0-1.3) K/mcL Eosinophils # (0.0-0.6) K/mcL Basophils # (0.0-0.2) K/mcL Immature Plt Fraction (1.1-6.1) % PT 14.4 H (9.4-12.1) Seconds INR 1.3 APTT 20.3 L (26.0-36.0) Seconds Sodium (136-145) mEq/L Potassium (3.5-4.5) mEq/L Chloride (98-109) mEq/L Carbon Dioxide (19-29) mEq/L BUN (7-20) mg/dL Creatinine (0.57-1.11) mg/dL Est GFR ( Amer) (> 60) Est GFR (Non-Af Amer) (> 60) BUN/Creatinine Ratio (6-26) Glucose (70-99) mg/dL Calculated Osmolality (280-300) Calcium (8.6-10.8) mg/dL Total Bilirubin (0.2-1.2) mg/dL AST (5-34) Units/L ALT (0-55) Units/L Alkaline Phosphatase (38-126) Units/L Troponin I 0.02 (0-0.03) ng/mL Serum Total Protein (6.0-8.3) g/dL Albumin (3.5-5.0) g/dL Globulin (2.4-3.5) g/dL Albumin/Globulin Ratio (1.1-2.2) Specimen Rejected Hemolyzed 10/08/16 10/08/16 Range/Units 17:54 17:54 WBC 12.9 H (4.3-11.1) K/mcL RBC 2.94 L (3.82-4.97) M/mcL Hgb 8.0 L (11.5-15.4) g/dL Hct 25.9 L (35.3-44.9) % MCV 88.1 (83.0-100.0) fL MCH 27.2 L (28.0-33.3) pg MCHC 30.9 L (31.6-35.5) g/dL RDW 17.7 H (11.5-14.5) % Plt Count 422 H (140-400) K/mcL MPV 10.8 (9.4-12.4) fL Immature Gran % 0.6 (0-4) % Seg Neutrophils % 82.6 % Lymphocytes % 9.2 % Monocytes % 7.0 % Eosinophils % 0.2 % Basophils % 0.4 % Neutrophils # 10.6 H (1.6-8.9) K/mcL Lymphocytes # 1.2 (0.6-4.6) K/mcL Monocytes # 0.9 (0.0-1.3) K/mcL Eosinophils # 0.0 (0.0-0.6) K/mcL Basophils # 0.1 (0.0-0.2) K/mcL Immature Plt Fraction 5.3 (1.1-6.1) % PT (9.4-12.1) Seconds INR APTT (26.0-36.0) Seconds Sodium 131 L (136-145) mEq/L Potassium 4.0 (3.5-4.5) mEq/L Chloride 100 (98-109) mEq/L Carbon Dioxide 20 (19-29) mEq/L BUN 32 H (7-20) mg/dL Creatinine 1.80 H (0.57-1.11) mg/dL Est GFR ( Amer) 34 L (> 60) Est GFR (Non-Af Amer) 28 L (> 60) BUN/Creatinine Ratio 18 (6-26) Glucose 116 H (70-99) mg/dL Calculated Osmolality 280 (280-300) Calcium 8.4 L (8.6-10.8) mg/dL Total Bilirubin 0.5 (0.2-1.2) mg/dL AST 85 H (5-34) Units/L ALT 49 (0-55) Units/L Alkaline Phosphatase 61 (38-126) Units/L Troponin I (0-0.03) ng/mL Serum Total Protein 7.4 (6.0-8.3) g/dL Albumin 2.2 L (3.5-5.0) g/dL Globulin 5.2 H (2.4-3.5) g/dL Albumin/Globulin Ratio 0.4 L (1.1-2.2) Specimen Rejected - Diagnostic Studies Chest x-ray Additional comments: Chest X-Ray 10/08/16 16:30 IMPRESSION: No acute cardiopulmonary disease. D/ / Juventino Pollock MD / Juventino Pollock MD Interpreting Provider: Juventino Pollock MD <Vincent Garcia - Last Filed: 10/09/16 02:19> Internal Medicine - H&P: HPI History of present illness: Ms. Figueredo is a 71 year old female All Systems PM: A 10-system review of systems was performed and is negative for pertinent findings except as documented above in the HPI. - Constitutional Vitals: Temp Pulse Resp BP Pulse Ox 98.5 F 102 16 104/50 96 10/09/16 00:12 10/09/16 00:12 10/09/16 00:12 10/09/16 00:12 10/09/16 00:12 Internal Med - H&P Results - Labs CBC & Chem 7: 10/08/16 17:54 10/08/16 17:54 - Attending Attestation I examined this patient and my medical decision-making was reviewed with the [employer] 1 [employer]RU 6 HOME TEACHER/PA/Advanced Practice Nurse/Resident Physician. I agree with the documented findings, disposition and treatment plan as described except to the extent set forth below. The patient was seen and examined by me independently. I discussed the case with the nurse practitioner Shell Gill. I agree with her physical examination findings, assessment and plan. Briefly, patient with underlying malignancy admitted due to atrial fibrillation with rapid ventricular response. Heart rate has improved with Cardizem drip. We will continue with the same and telemetry monitoring. Acute kidney injury noted, possibly due to hydronephrosis, we will obtain a renal ultrasound for further evaluation. Cardiology consultation for further adjustment of medications for rate control and long-term anticoagulation. Plan of care was discussed in detail with the patient, she expressed understanding.
[2016-10-09] MEDS: Hydrocortisone 1% OINT 28 GM TUBE TP SCH ×3 (00:13→21:04)
[2016-10-09] MEDS ORDERED: *HR* Dextrose 50 % in Water (Syg) 50 ML SYRINGE IVP PRN (00:24)
[2016-10-09] MEDS ORDERED: Dextrose Gel 15 GM PO PRN ×2 (00:24)
[2016-10-09] MEDS ORDERED: Menthol 9.1 MG LOZENGE PO PRN (01:48)
[2016-10-09] MEDS: *HR* OxyCODONE Immed Rel 5 MG TABLET PO PRN ×3 (04:17→21:04)
[2016-10-09 05:28] LABS: Bilirubin,Urine Negative (Negative); Blood,Urine Small (Negative); Clarity,Urine Cloudy (Clear); Color,Urine Yellow (Yellow); Glucose,Urine (UA) Normal (Normal); Ketones,Urine Negative (Negative); Leukocyte Esterase,Urine Large (Negative); Nitrite,Urine Negative (Negative); Protein,Urine Trace mg/dL (Neg-Trace); Specific Gravity,Urine 1.008 (1.010-1.025); Urobilinogen,Urine Normal (Normal)
[2016-10-09 05:31] LABS: Bacteria,Urine Many per hpf (None-Few); Hyaline Casts,Urine None Seen per lpf (None-Few); RBC,Urine 15-30 per hpf (0-3); Squamous Epithelial Cell,Urine None Seen per lpf (None-Few); WBC,Urine TNTC per hpf (0-3)
[2016-10-09 06:38] LABS: Basophils % 0.5 %; Eosinophils # 0.1 K/mcL (0.0-0.6); Eosinophils % 0.9 %; Hematocrit 22.5 % (35.3-44.9); Hemoglobin 6.9 g/dL (11.5-15.4); Immature Granulocytes % 0.6 % (0-4); Lymphocytes # 0.9 K/mcL (0.6-4.6); Lymphocytes % 11.2 %; Mean Corpuscular HGB Conc 30.7 g/dL (31.6-35.5); Mean Corpuscular Volume 87.9 fL (83.0-100.0); Mean Platelet Volume 10.5 fL (9.4-12.4); Monocytes # 0.8 K/mcL (0.0-1.3); Monocytes % 10.1 %; Neutrophils # 6.2 K/mcL (1.6-8.9); Platelet Count 384 K/mcL (140-400); Red Blood Count 2.56 M/mcL (3.82-4.97); Red Cell Distribution Width 17.6 % (11.5-14.5); Segmented Neutrophils % 76.7 %
[2016-10-09 06:46] LABS: Calcium 7.8 mg/dL (8.6-10.8); Potassium 4.1 mEq/L (3.5-4.5)
[2016-10-09] MEDS ORDERED: Loratadine 10 MG TABLET PO SCH (09:00)
[2016-10-09] MEDS: Insulin LISPRO 300 UNITS/3 ML VIAL SQ SCH ×4 (09:42→21:05)
[2016-10-09] MEDS: Aspirin 81 MG TAB.CHEW PO SCH (09:44)
[2016-10-09] MEDS: Nystatin Cream 15 GM TUBE TP SCH ×2 (09:44→21:04)
[2016-10-09] MEDS: Metoprolol XL (24 HR) Succ 50 MG TAB.ER.24H PO SCH (09:44)
[2016-10-09] MEDS: Fluticasone Propionate Nasal 50 MCG/SPRAY BOTTLE NS SCH (09:46)
--- NOTE | 2016-10-09 10:45 | Cardiology Consult Note ---
Date of Encounter: 10/09/16 Time of Encounter: 10:37 Assessment and Plan (1) Atrial fibrillation with rapid ventricular response Current Visit: No Status: Acute Patient was seen in cardiology office yesterday, found to have recurrent Afib RVR and symptomatic, sent to ED for aggressive rate control. Currently chest pain free. No elevated troponins Etiology likely secondary to UTI- management per primary team. CHADS/VASC score: 4 Tele shows Min HR 62, Max 170s, no VT runs, but 15 episodes of isolated PVCs were seen. Patient was on coumadin and Xarelto in the past for Afib, but was stopped due to issues she was having. when asked about this, she states she got nose bleeds , but was not sure which anticoagulant caused this. Last echo from 07/11/14 showed LVEF 55-60%, mild asymmetric septal hypertrophy, no evidence of LVOT obstruction, mild LV diastolic dysfunction. no significant valvular dysfunction. Plan: patient was referred to coumadin clinic to start anticoagulation for Afib, will hold off on this due to Anemia. stopped Cardizem drip. No antiarrhythmics at this time, we will pursue a rate control strategy until her anemia workup, UTI, CL are treated. Eventual plan will be rhythm control once she is stabilized Patient's dose of Toprol XL was increased to 100mg daily by Dr. Forrest yesterday (was on 50mg before)-will continue with this. continue ASA for now, if obvious signs of bleeding occur, may discontinue. Stopped Heparin SQ in setting of anemia. Hold losartan due to CL. Echocardiogram pending. (2) Anemia Current Visit: No Status: Acute Hg down to 6.9 from 8 yesterday. drop from Hg of 13.7 in Feb 2016 will currently hold off on starting anticoagulation Pending 1 unit RBC transfusion, pending anemia workup. Recommend consult to GI if no obvious cause of anemia found. Qualifiers: Anemia type: other cause Other causes of anemia: chronic disease, neoplastic Qualified Code(s): D63.0 - Anemia in neoplastic disease (3) Long QT syndrome Current Visit: Yes Status: Acute drug induced, due to Azithromycin. Continue to avoid QT prolonging drugs. (4) History of colorectal cancer Current Visit: Yes Status: Acute s/p chemoradioation with colectomy, colostomy, pelvic exoneration surgery with cystectomy, resection of pelvic floor including ROE/BSO by Dr. Jenny Mendoza on at [facility]. Follows with Dr. beatrice Masterson w patient/family: The assessment and plan as outlined above was discussed with the patient and/or family members who expressed understanding and agreement. All questions were answered. Thank you for involving us in the care of your patient. Please call with any questions. History of Present Illness Consult date: 10/08/16 Requesting physician: Vincent Garcia Consult reason: Afib RVR Chief complaint: lightheadedness, palpitations History of present illness: Ms. 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 Forrest yesterday. She complained of lightheadedness, palpitations, and near syncope. She was found to have Afib RVR. Patient received one dose of lovenox in ED, then placed on Cardizem drip. Today, she denies chest pain, dizziness, shortness of breath. No obvious signs of bleeding on exam. Past Med Surg Social Fam HX - Past Medical History Medical history: arthritis, atrial fibrillation, cancer, diabetes, GERD, glaucoma, hypertension, osteoporosis Psychiatric history: no psych history - Past Surgical History Surgical History: cancer surgery, colostomy, other - Social History Smoking Status: Former smoker Smokeless Tobacco Status: No Alcohol use: none Drug use: none - Family History Brother Name: Camron Kat Family Member Ethnicity: Non- Living Status: Still Living Hx Family Cardiac Disorders: Yes (AFIB) Hx Family Respiratory Disorders: No Hx Family Cancer: No Hx Family GI Disorders: No Hx Family Endocrine Disorder: No Hx Family Neuromuscular Disorders: No Hx Family Neurologic Disorders: No Hx Family HEENT Disorders: No Hx Family Autoimmune Disorders: No Sister Name: Katie Ny Family Member Ethnicity: Non- Living Status: Still Living Hx Family Cardiac Disorders: Yes (AFIB) Hx Family Respiratory Disorders: No Hx Family Cancer: No Hx Family GI Disorders: No Hx Family Endocrine Disorder: Yes (DM) Hx Family Neuromuscular Disorders: No Hx Family Neurologic Disorders: No Hx Family HEENT Disorders: No Hx Family Autoimmune Disorders: No Son Living Status: Still Living Hx Family Cardiac Disorders: Yes (HTN) Hx Family Respiratory Disorders: No Hx Family Cancer: No Hx Family GI Disorders: No Hx Family Endocrine Disorder: Yes (DM) Hx Family Neuromuscular Disorders: No Hx Family Neurologic Disorders: No Hx Family HEENT Disorders: No Hx Family Autoimmune Disorders: No Mother Name: Ritu Kat Age: 83 Family Member Ethnicity: Non- Living Status: Age at : 83 Cause of : Blood Clots Hx Family Cardiac Disorders: Yes (CHF) Hx Family Respiratory Disorders: No Hx Family Cancer: No Hx Family GI Disorders: No Hx Family Endocrine Disorder: Yes Hx Family Neuromuscular Disorders: Yes Hx Family Neurologic Disorders: No Hx Family HEENT Disorders: No Hx Family Autoimmune Disorders: No Father Adopted: [place]: Rajinder Kat Age: 76 Family Member Ethnicity: Non- Living Status: Age at : 76 Cause of : [place] Hx Family Cardiac Disorders: Yes Hx Family Respiratory Disorders: No Hx Family Cancer: No Hx Family GI Disorders: No Hx Family Endocrine Disorder: No Hx Family Neuromuscular Disorders: No Hx Family Neurologic Disorders: No Hx Family HEENT Disorders: No Hx Family Autoimmune Disorders: No Medications and Allergies Multivitamin [Multi-Day Vitamins] 1 each PO DAILY 04/18/15 [History] [employer] Oil/[place]-3 Fatty Acids [Fish Oil 500 mg Softgel] 1 each PO DAILY [History] Fluticasone Propionate Nasal [Flonase] 1 spray NS DAILY 08/20/15 [History] Zolpidem [Ambien] 5 mg PO HS 08/20/15 [History] Docusate Sodium [Stool Softener] 100 mg PO BID PRN 06/10/16 [History] Losartan Potassium [Cozaar] 100 mg PO DAILY 09/03/16 [History] Aspirin 81 mg PO DAILY 09/04/16 [History] Loratadine [Claritin] 10 mg PO DAILY 09/04/16 [History] Hydrocortisone 1% OINT [Cortaid] 1 appl TP BID #1 tube 09/17/16 [Rx] Oxycodone HCl 2 tab PO Q6H PRN #240 capsule 09/17/16 [Rx] Glimepiride [Amaryl] 2 mg PO QAM 10/08/16 [History] Metoprolol Succinate 100 mg PO DAILY 10/08/16 [History] Nystatin Cream [Mycostatin Cream] 1 appl TP BID 10/08/16 [History] Saline Nasal [place] [[place] Nasal [place]] 2 spray NS Q6H PRN 10/08/16 [History] Warfarin [Coumadin] 5 mg PO DAILY 10/08/16 [History] Allergies Penicillins Allergy (Verified 09/04/16 11:39) Rash All Systems Review: A 10-system review of systems was performed and is negative for pertinent findings except as documented above in the HPI. - Constitutional Constitutional: no chills, no fatigue, no fever(s), no headache(s) - Cardiovascular Cardiovascular: no chest pain at rest, no chest pain with exertion, no diaphoresis - Genitourinary Genitourinary: no hematuria - Neurological Neurological: no dizziness, no syncope Physical Examination Vital Signs, Last 4 Hours Temp Pulse Resp BP Pulse Ox 10/09/16 07:51 98.1 F 87 16 112/61 96 General: Conversant, No Apparent Distress HEENT: Atraumatic Cardiac: Normal S1 and S2 Lungs: Normal Breath Sounds, No Wheeze, Rales, Rhonchi Neuro: Alert and responsive, No focal deficits noted Abdomen: Other (urostomy and colostomy in place. no obvious signs of bleeding. ) Extremities: No Cyanosis, No Edema Results 10/09/16 06:14 10/09/16 06:14 Lab Results 10/09/16 10/09/16 06:14 06:14 WBC 8.0 Hgb 6.9 L Hct 22.5 L Plt Count 384 Sodium 135 L Potassium 4.1 Chloride 105 Carbon Dioxide 22 BUN 29 H Creatinine 1.47 H Glucose 124 H Calcium 7.8 L Consult Discharge Plan - Plan Referrals: Ross Zaragoza MD [Primary Care Provider] -
--- NOTE | 2016-10-09 12:09 | Internal Med Progress Note ---
Date of Encounter: 10/09/16 Time of Encounter: 12:07 - Assessment and plan (1) CL (acute kidney injury) Current Visit: Yes Status: Acute Assessment and plan: Currently on iv fluids. Cr coming down, will stop iv fluids, stop ARB, avoid nephrotoxin, monitor Cr. encourage po fluid (2) Atrial fibrillation with rapid ventricular response Current Visit: No Status: Acute Assessment and plan: cardizem drip. will transition to oral. f/u w/ cardiology. No warfarin due to high risk for GI bleed given colostomy and h/o colorectal CA. (3) CKD (chronic kidney disease) stage 3, GFR 30-59 ml/min Current Visit: No Status: Chronic Assessment and plan: Avoid nephrotoxins. Monitor GFR. IV fluids. (4) DVT prophylaxis Current Visit: No Status: Acute Assessment and plan: We will encourage early ambulation. (5) Anemia Current Visit: No Status: Acute Assessment and plan: 1 unit PRBC. check iron studies, folate B12 Qualifiers: Anemia type: other cause Other causes of anemia: chronic disease, neoplastic Qualified Code(s): D63.0 - Anemia in neoplastic disease (6) Presence of urostomy Current Visit: No Status: Chronic (7) Urinary tract infection Current Visit: Yes Status: Acute Assessment and plan: We will obtain urine culture. Start ceftriaxone. Prior culture from August 2016 reviewed in the records grew Klebsiella sensitive to ceftriaxone. Qualifiers: Urinary tract infection type: catheter-associated UTI Indwelling urinary catheter type: unspecified Encounter type: initial encounter Qualified Code( s): T83.511A - Infection and inflammatory reaction due to indwelling urethral catheter, initial encounter; N39.0 - Urinary tract infection, site not specified - Subjective Interval history: Pt here for Afib RVR, says 0/10 CP, w/o palpitations. Denies bleeding in colostomy bag no blood in urine. - Constitutional Vitals: Temp Pulse Resp BP Pulse Ox 98.1 F 87 16 112/61 96 10/09/16 07:51 10/09/16 07:51 10/09/16 07:51 10/09/16 07:51 10/09/16 08:00 General appearance: Present: A&O X 3, pleasant, no acute distress - Eye Eye exam: Present: PERRL, conjuntiva pink, sclera anicteric Pupils: Present: PERRL - Respiratory Respiratory exam: Present: CTAB. Absent: accessory muscle use, rales, rhonchi, wheezes - Cardiovascular Cardiovascular exam: Present: irregular rhythm, +S1, +S2. Absent: systolic murmur, tachycardia - Additional comments: urostomy bag/ w/ normal color - Extremities Exam Extremities exam: Present: warm, radial pulses palpable and symetrical. Absent : calf tenderness, cyanotic, pedal edema Additional comments: varicose veins - Neurological Exam Neurological exam: Present: CN II-XII intact, oriented X3, no focal deficits. Absent: pronater drift, facial droop, speech deficit - Skin Skin exam: Present: dry, intact Internal Medicine: Result - Labs CBC & Chem 7: 10/09/16 21:02 10/09/16 06:14 Labs: Short CBC 10/09/16 Range/Units 06:14 WBC 8.0 (4.3-11.1) K/mcL Hgb 6.9 L (11.5-15.4) g/dL Hct 22.5 L (35.3-44.9) % Plt Count 384 (140-400) K/mcL Neutrophils # 6.2 (1.6-8.9) K/mcL BMP 10/09/16 06:14 Sodium 135 L Potassium 4.1 Chloride 105 Carbon Dioxide 22 BUN 29 H Creatinine 1.47 H Glucose 124 H Calcium 7.8 L Urine 10/09/16 Range/Units 04:50 Urine Color Yellow (Yellow) Urine Clarity Cloudy A (Clear) Urine pH 6.0 (5.0-8.0) pH Units Ur Specific [place] 1.008 L (1.010-1.025) Urine Protein Trace (Neg-Trace) mg/dL Urine Glucose (UA) Normal (Normal) mg/dL - ABG Interpretation ABG results: PT/INR, D-dimer PT 14.4 Seconds (9.4-12.1) H 10/08/16 17:03 Consult Discharge Plan - Plan Referrals: Ross Zaragoza MD [Primary Care Provider] -
[2016-10-09 14:47] LABS: % Iron Saturation 9 % (15-50); Iron 22 mcg/dL (50-170); Transferrin 167 mg/dL (180-382)
[2016-10-09 15:21] LABS: Folate 12.3 ng/mL (7.0-31.4)
[2016-10-09] MEDS ORDERED: 0.9 % Sodium Chloride 500 ML ONE (16:28)
[2016-10-09] MEDS ORDERED: *HR* Heparin 5,000 UNIT/ML VIAL SQ SCH (18:00)
[2016-10-09 21:08] LABS: Basophils # 0.1 K/mcL (0.0-0.2); Basophils % 0.6 %; Eosinophils # 0.1 K/mcL (0.0-0.6); Eosinophils % 0.6 %; Hematocrit 25.5 % (35.3-44.9); Hemoglobin 7.9 g/dL (11.5-15.4); Immature Granulocytes % 0.4 % (0-4); Lymphocytes # 0.9 K/mcL (0.6-4.6); Lymphocytes % 11.1 %; Mean Corpuscular Hemoglobin 27.1 pg (28.0-33.3); Mean Corpuscular Volume 87.3 fL (83.0-100.0); Mean Platelet Volume 10.1 fL (9.4-12.4); Monocytes # 0.8 K/mcL (0.0-1.3); Monocytes % 9.2 %; Neutrophils # 6.3 K/mcL (1.6-8.9); Platelet Count 385 K/mcL (140-400); Red Blood Count 2.92 M/mcL (3.82-4.97); Red Cell Distribution Width 17.1 % (11.5-14.5); Segmented Neutrophils % 78.1 %
[2016-10-10 05:44] LABS: Basophils # 0.1 K/mcL (0.0-0.2); Basophils % 0.8 %; Eosinophils # 0.1 K/mcL (0.0-0.6); Eosinophils % 1.3 %; Hematocrit 27.7 % (35.3-44.9); Hemoglobin 8.4 g/dL (11.5-15.4); Immature Granulocytes % 0.6 % (0-4); Lymphocytes # 1.1 K/mcL (0.6-4.6); Lymphocytes % 13.9 %; Mean Corpuscular HGB Conc 30.3 g/dL (31.6-35.5); Mean Corpuscular Hemoglobin 26.8 pg (28.0-33.3); Mean Corpuscular Volume 88.5 fL (83.0-100.0); Mean Platelet Volume 9.9 fL (9.4-12.4); Monocytes # 0.9 K/mcL (0.0-1.3); Monocytes % 10.8 %; Neutrophils # 5.7 K/mcL (1.6-8.9); Platelet Count 405 K/mcL (140-400); Red Blood Count 3.13 M/mcL (3.82-4.97); Red Cell Distribution Width 17.2 % (11.5-14.5); Segmented Neutrophils % 72.6 %
[2016-10-10 05:59] LABS: Calcium 8.8 mg/dL (8.6-10.8); Potassium 4.2 mEq/L (3.5-4.5)
[2016-10-10] MEDS: Insulin LISPRO 300 UNITS/3 ML VIAL SQ SCH ×4 (10:00→21:47)
--- NOTE | 2016-10-10 10:08 | ECHO - Doppler Report ---
Echocardiogram Name: Toshia Figueredo Date of Study: 10/09/2016 Date: 1945 Ht: 64.0 in Medical Record#: [id number] Age: 71 Wt: 174.0 lb Gender: Female BSA: 1.84 Order #: [id number] Location: [facility] Room #: [id number] Reading Physician: Chaparro Burrell DO, KENNETH, BRIGITTE ELMORE Radiographer: Vicki Guerra Ordering Physician: Leobardo Murrieta CNP Primary Physician: Ross Zaragoza MD Indications: AFIB, Shortness of breath Impressions: LVEF 55-60%. Normal LV chamber size, wall thickness and function. Mild left ventricular diastolic dysfunction. Atypical septal motion of unclear etiology. Normal right ventricular structure and function. No evidence of pulmonary hypertension. Left Ventricular Wall Motion: Rest Echo Findings All wall segments showed normal motion. Findings: Study Quality * Technically adequate exam. ECG Findings * Normal sinus rhythm. Left Ventricle * LVEF 55-60%. * Normal LV chamber size, wall thickness and function. * Mild left ventricular diastolic dysfunction. * Atypical septal motion of unclear etiology. Right Ventricle * Normal right ventricular structure and function. Left Atrium * Mildly dilated left atrium. Right Atrium * Normal right atrial size. Interatrial Septum * No evidence of PFO by color Doppler. Aortic Valve * Trileaflet aortic valve. * Mildly sclerotic aortic valve leaflets. * No aortic regurgitation. * No aortic stenosis. Mitral Valve * Mildly thickened mitral valve leaflets. * Trace mitral regurgitation. * No mitral stenosis. Tricuspid Valve * Normal tricuspid valve structure and function. * Trace tricuspid regurgitation. * No evidence of pulmonary hypertension. Pulmonic Valve * Normal pulmonic valve structure and function. * No pulmonic regurgitation. Aorta * Normally sized aortic root. Pericardium * The pericardium appears normal. IVC * The IVC is not well evaluated. Pulmonary Artery * Normal visualized portions of the main pulmonary artery. History Hypertension Diabetes Family History of CAD 07/11/2014 a Previous Echo was performed. Measurements: BP: 104/ 68 2D Normal Values RVIDd: 2.80 cm <2.7 cm IVSd: 1.00 cm 0.6 - 1.0 cm LVIDd: 5.20 cm 3.7 - 5.6 cm LVPWd: .90 cm 0.6 - 1.1 cm LVIDs: 3.50 cm 1.5 - 3.6 cm AO: 2.60 cm < 4.0 cm LA: 3.70 cm 2.0 - 4.0cm %FS: 32.70 cm >25 % LA volume: 49 Mitral Valve Peak E:1.11 m/sec Peak A:1.15 m/sec E/A Ratio:1 Peak E' Lat Raphael:10 cm/s Peak E' Med Raphael:6.34 cm/s E/E' Lat Ratio:11.1 E/E' Med Ratio:17.5 Tricuspid Valve TV Regurg Peak Grad: 24.00mmHg TV Regurg Peak Raphael: 2.46m/sec Updated by Chaparro Burrell DO, FACJayne, RAMÍREZ, BRIGITTE on 10/10/2016 10:03:12 AM electronically signed on 10/10/2016 10:03:48 AM with status of Final Wall Motion Chávez: 1=Normal, 2=Hypokinesis, 3=Akinesis, 4=Dyskinesis, 5=Aneurysmal, 6=Hyperkinetic, X=Not Visualized (Blank)=Missing
--- NOTE | 2016-10-10 10:42 | Cardiology Progress Note ---
Date of Encounter: 10/10/16 Time of Encounter: 10:40 Assessment and Plan (1) Atrial fibrillation with rapid ventricular response Current Visit: No Status: Acute Patient was seen in cardiology office, found to have recurrent Afib RVR and symptomatic, sent to ED for aggressive rate control. Currently chest pain free. No elevated troponins Etiology likely secondary to UTI- management per primary team. CHADS/VASC score: 4 Tele shows Min HR 74, max HR 123, average HR 88. No episodes of VTach. Some episodes of isolated PVCs noted. Patient was on coumadin and Xarelto in the past for Afib, but was stopped due to issues she was having. when asked about this, she states she got nose bleeds , but was not sure which anticoagulant caused this. Plan: hold off on anticoagulation until anemia workup complete. Eventual plan will be rhythm control once she is stabilized Continue Toprol XL 100mg daily. continue ASA for now, if obvious signs of bleeding occur, may discontinue. Echocardiogram report pending. will follow up with Dr. Forrest in 1-2 weeks outpatient. will set up appointment. Cardiology will sign off now. please re consult PRN. (2) Anemia Current Visit: No Status: Acute Hg improved today, 8.4, got one unit RBC transfusion yesterday. will currently hold off on starting anticoagulation will follow up with cardiology outpatient. Qualifiers: Anemia type: other cause Other causes of anemia: chronic disease, neoplastic Qualified Code(s): D63.0 - Anemia in neoplastic disease (3) Long QT syndrome Current Visit: Yes Status: Acute drug induced, due to Azithromycin. Continue to avoid QT prolonging drugs. (4) History of colorectal cancer Current Visit: Yes Status: Acute s/p chemoradioation with colectomy, colostomy, pelvic exoneration surgery with cystectomy, resection of pelvic floor including ROE/BSO by Dr. Jenny Mendoza on at [facility]. Follows with Dr. beatrice Masterson w patient/family: The assessment and plan as outlined above was discussed with the patient and/or family members who expressed understanding and agreement. All questions were answered. Thank you for involving us in the care of your patient. Please call with any questions. Subjective Principal diagnosis: Afib RVR Interval history: 71 year old female evaluated at bedside. Patient states she feels well today. she denies nausea, vomiting, diarrhea, fever, chills. Denies chest pain, dizziness, or shortness of breath. Objective Vital Signs, Last 4 Hours Pulse Resp BP Pulse Ox 10/10/16 07:00 98 17 140/67 95 General: Conversant, No Apparent Distress HEENT: Atraumatic, Normocephaly Neck: Other (irregular rhythm) Lungs: Normal Breath Sounds, No Wheeze, Rales, Rhonchi Neuro: Alert and responsive, No focal deficits noted Extremities: No Cyanosis, No Edema Results 10/10/16 05:34 10/10/16 05:34 Lab Results 10/09/16 10/10/16 10/10/16 21:02 05:34 05:34 WBC 8.1 7.9 Hgb 7.9 L 8.4 L Hct 25.5 L 27.7 L Plt Count 385 405 H Sodium 138 Potassium 4.2 Chloride 107 Carbon Dioxide 24 BUN 19 D Creatinine 1.32 H Glucose 82 Calcium 8.8 Consult Discharge Plan - Plan Referrals: Ross Zaragoza MD [Primary Care Provider] -
[2016-10-10] MEDS: Hydrocortisone 1% OINT 28 GM TUBE TP SCH ×2 (10:44→20:42)
[2016-10-10] MEDS: Metoprolol XL (24 HR) Succ 50 MG TAB.ER.24H PO SCH (10:44)
[2016-10-10] MEDS: Aspirin 81 MG TAB.CHEW PO SCH (10:44)
[2016-10-10] MEDS: Nystatin Cream 15 GM TUBE TP SCH ×2 (10:45→20:42)
[2016-10-10] MEDS: Fluticasone Propionate Nasal 50 MCG/SPRAY BOTTLE NS SCH (10:45)
[2016-10-10] MEDS: *HR* OxyCODONE Immed Rel 5 MG TABLET PO PRN ×2 (13:34→20:42)
--- NOTE | 2016-10-10 14:27 | Internal Med Progress Note ---
Date of Encounter: 10/10/16 Time of Encounter: 14:23 - Assessment and plan (1) CL (acute kidney injury) Current Visit: Yes Status: Acute Assessment and plan: Encourage oral and oral hydration. Cr coming down, will stop iv fluids, stop ARB , avoid nephrotoxin, monitor Cr. encourage po fluid (2) Atrial fibrillation with rapid ventricular response Current Visit: No Status: Acute Assessment and plan: Stopped cardizem drip. will transition to oral. Appreciate cardiology input. No warfarin due to high risk for GI bleed given colostomy and h/o colorectal CA. (3) CKD (chronic kidney disease) stage 3, GFR 30-59 ml/min Current Visit: No Status: Chronic Assessment and plan: Avoid nephrotoxins. Monitor GFR. IV fluids. (4) DVT prophylaxis Current Visit: No Status: Acute Assessment and plan: We will encourage early ambulation. (5) Anemia Current Visit: No Status: Acute Assessment and plan: 1 unit PRBC. check iron studies, folate B12 Qualifiers: Anemia type: other cause Other causes of anemia: chronic disease, neoplastic Qualified Code(s): D63.0 - Anemia in neoplastic disease (6) Presence of urostomy Current Visit: No Status: Chronic (7) Urinary tract infection Current Visit: Yes Status: Acute Assessment and plan: Follow-up urine culture. We will treat with ceftriaxone for 48 hours and then transitioned to oral antibiotics according to culture and sensitivities. She has been evaluated by urology and I discussed the case with Dr. Turcios. He will see her in the office next week.. Prior culture from August 2016 reviewed in the records grew Klebsiella sensitive to ceftriaxone. Qualifiers: Urinary tract infection type: catheter-associated UTI Indwelling urinary catheter type: unspecified Encounter type: initial encounter Qualified Code( s): T83.511A - Infection and inflammatory reaction due to indwelling urethral catheter, initial encounter; N39.0 - Urinary tract infection, site not specified - Subjective Interval history: Pt here for Afib RVR, says 0/10 CP, w/o palpitations. Denies bleeding in colostomy bag no blood in urine. - Constitutional Vitals: Temp Pulse Resp BP Pulse Ox 97.8 F 82 15 149/74 96 10/10/16 11:00 10/10/16 11:00 10/10/16 11:00 10/10/16 11:00 10/10/16 11:00 General appearance: Present: A&O X 3, pleasant, no acute distress - Neck Neck exam general surgery: Present: supple, trachea midline. Absent: lymphadenopathy - Cardiovascular Cardiovascular exam: Present: RRR, +S1, +S2. Absent: diastolic murmur, gallop, rubs, systolic murmur - GI/Abdominal GI/Abdominal exam: Present: normal bowel sounds, soft, no peritoneal signs. Absent: distended, tenderness Additional comments: colostomy, ileal conduit - Extremities Exam Extremities exam: Present: warm, radial pulses palpable and symetrical. Absent : calf tenderness, cyanotic, pedal edema Internal Medicine: Result - Labs CBC & Chem 7: 10/10/16 05:34 10/10/16 05:34 Labs: Short CBC 10/09/16 10/10/16 Range/Units 21:02 05:34 WBC 8.1 7.9 (4.3-11.1) K/mcL Hgb 7.9 L 8.4 L (11.5-15.4) g/dL Hct 25.5 L 27.7 L (35.3-44.9) % Plt Count 385 405 H (140-400) K/mcL Neutrophils # 6.3 5.7 (1.6-8.9) K/mcL BMP 10/10/16 05:34 Sodium 138 Potassium 4.2 Chloride 107 Carbon Dioxide 24 BUN 19 D Creatinine 1.32 H Glucose 82 Calcium 8.8 - ABG Interpretation ABG results: PT/INR, D-dimer PT 14.4 Seconds (9.4-12.1) H 10/08/16 17:03 Consult Discharge Plan - Plan Referrals: Ross Zaragoza MD [Primary Care Provider] -
[2016-10-11 06:29] LABS: Basophils # 0.1 K/mcL (0.0-0.2); Basophils % 0.6 %; Eosinophils # 0.1 K/mcL (0.0-0.6); Eosinophils % 1.4 %; Hematocrit 26.5 % (35.3-44.9); Immature Granulocytes % 0.6 % (0-4); Lymphocytes # 1.2 K/mcL (0.6-4.6); Lymphocytes % 14.4 %; Mean Corpuscular HGB Conc 30.2 g/dL (31.6-35.5); Mean Corpuscular Hemoglobin 26.6 pg (28.0-33.3); Mean Platelet Volume 9.8 fL (9.4-12.4); Monocytes # 0.8 K/mcL (0.0-1.3); Monocytes % 9.6 %; Neutrophils # 6.1 K/mcL (1.6-8.9); Platelet Count 417 K/mcL (140-400); Red Blood Count 3.01 M/mcL (3.82-4.97); Red Cell Distribution Width 17.1 % (11.5-14.5); Segmented Neutrophils % 73.4 %
[2016-10-11 06:39] LABS: Calcium 8.8 mg/dL (8.6-10.8); Potassium 4.2 mEq/L (3.5-4.5)
[2016-10-11] MEDS: Aspirin 81 MG TAB.CHEW PO SCH (09:12)
[2016-10-11] MEDS: Metoprolol XL (24 HR) Succ 50 MG TAB.ER.24H PO SCH (09:12)
[2016-10-11] MEDS: Insulin LISPRO 300 UNITS/3 ML VIAL SQ SCH ×2 (09:12→13:04)
[2016-10-11] MEDS: Hydrocortisone 1% OINT 28 GM TUBE TP SCH (09:13)
[2016-10-11] MEDS: Fluticasone Propionate Nasal 50 MCG/SPRAY BOTTLE NS SCH (09:13)
[2016-10-11] MEDS: Nystatin Cream 15 GM TUBE TP SCH (09:14)
[2016-10-11] MEDS: *HR* OxyCODONE Immed Rel 5 MG TABLET PO PRN (09:26)
[2016-10-11 11:39] VITALS: BP 139/62
--- NOTE | 2016-10-11 11:48 | Discharge Summary ---
Date of Encounter: 10/11/16 Time of Encounter: 11:41 - Discharge Diagnosis (1) CL (acute kidney injury) Priority: Primary Status: Acute (2) Atrial fibrillation with rapid ventricular response Priority: Secondary Status: Acute (3) CKD (chronic kidney disease) stage 3, GFR 30-59 ml/min Priority: Secondary Status: Chronic (4) DVT prophylaxis Priority: Secondary Status: Acute (5) Anemia Priority: Secondary Status: Acute Qualifiers: Anemia type: other cause Other causes of anemia: chronic disease, neoplastic Qualified Code(s): D63.0 - Anemia in neoplastic disease (6) Presence of urostomy Priority: Secondary Status: Chronic (7) Urinary tract infection Priority: Secondary Status: Acute Qualifiers: Urinary tract infection type: catheter-associated UTI Indwelling urinary catheter type: unspecified Encounter type: initial encounter Qualified Code( s): T83.511A - Infection and inflammatory reaction due to indwelling urethral catheter, initial encounter; N39.0 - Urinary tract infection, site not specified - Discharge Medications Prescriptions: Cefuroxime PO [Ceftin] 250 mg PO Q12HR #14 tablet Metoprolol Succinate 100 mg PO DAILY #30 tab.er.24h Home Medications: Multivitamin [Multi-Day Vitamins] 1 each PO DAILY 04/18/15 [History] [place] Oil/Flora-3 Fatty Acids [Fish Oil 500 mg Softgel] 1 each PO DAILY [History] Fluticasone Propionate Nasal [Flonase] 1 spray NS DAILY 08/20/15 [History] Zolpidem [Ambien] 5 mg PO HS 08/20/15 [History] Docusate Sodium [Stool Softener] 100 mg PO BID PRN 06/10/16 [History] Aspirin 81 mg PO DAILY 09/04/16 [History] Loratadine [Claritin] 10 mg PO DAILY 09/04/16 [History] Hydrocortisone 1% OINT [Cortaid] 1 appl TP BID #1 tube 09/17/16 [Rx] Oxycodone HCl 2 tab PO Q6H PRN #240 capsule 09/17/16 [Rx] Glimepiride [Amaryl] 2 mg PO QAM 10/08/16 [History] Nystatin Cream [Mycostatin Cream] 1 appl TP BID 10/08/16 [History] Saline Nasal [place] [[place] Nasal [place]] 2 spray NS Q6H PRN 10/08/16 [History] Cefuroxime PO [Ceftin] 250 mg PO Q12HR #14 tablet 10/11/16 [Rx] Metoprolol Succinate 100 mg PO DAILY #30 tab.er.24h 10/11/16 [Rx] Allergies/Adverse Reactions: Allergies Penicillins Allergy (Verified 09/04/16 11:39) Rash Procedures/tests Complete & Pending: Procedures Performed prior 72 hours Category Date Time Status EV echocardiogram Routine Y 10/09/16 13:14 Completed Date of admission: 10/09/16 00:39 Primary care physician: Armando Javed - Patient Status Disposition: Home, Self-Care Condition: Good Functional capacity at discharge: independent ambulation Overall status at discharge: patient is back to baseline - Discharge Instructions Instructions: Cefuroxime (By mouth), Metoprolol (By mouth), Atrial Fibrillation (DC), Colostomy Care (DC), Colostomy Care (GEN), Urostomy Care (DC) , Urostomy Care (GEN), Urinary Tract Infection in Women (DC), Diabetes Mellitus Type 2 in Adults (DC), Chronic Hypertension (DC), Anemia (GEN) Follow Up With: Ross Zaragoza MD [Primary Care Provider] - - Diet and Activity Activity: increase activity as tolerated Diet: advance to your usual diet, low salt diet Hospital course: Hospital presentation:Ms. Figueredo is a 71 year old female with hypertension, atrial fibrillation, recurrent colorectal cancer status post chemotherapy and radiation as well as colectomy with colostomy, pelvic exoneration surgery with cystectomy and ileal conduit urostomy was sent to the emergency department today by her yarn cleaner when she was found to be in A. fib with RVR with heart rate in the 160s. Patient reports that she was feeling lightheaded, nearly fainted yesterday, had shortness of breath, nausea, as well as feeling like her heart was racing and she had palpitations. She was able to get an appointment with her yarn cleaner, fazal Forrest who sent her over to the emergency department. She denies any fever, chills, sweats, body aches. She denies any chest pain. She denies any change in urine output or stool output from her ostomies. Evaluation in the emergency department included chest x-ray which showed no acute cardiopulmonary disease, troponin was negative at 0.02, EKG showed A. fib with RVR and heart rate of 164. She was also found to have acute kidney injury with creatinine of 1.8 up from baseline of 0.8. She is anemic with hemoglobin of 8.0 consistent with recent results. Blood cell count was mildly elevated at 12.9. Heart has irregular, tachycardic rhythm. Lungs are clear bilaterally to auscultation. Urostomy is beefy red with cloudy yellow output. Colostomy also is beefy red. Hospital course: Patient was treated with IV fluids. We held losartan. She was evaluated by cardiology and her metoprolol was increased. Her heart rate was well-controlled while hospitalized. Her creatinine came down with IV fluids. She received treatment for complicated UTI with IV ceftriaxone and will be discharged on Ceftin. - Time Spent with Patient Total time spent providing and/or coordinating discharge services: - Constitutional Vitals: Temp Pulse Resp BP Pulse Ox 98.2 F 61 15 139/62 96 10/11/16 05:37 10/11/16 11:00 10/11/16 11:00 10/11/16 11:00 10/11/16 11:00 General appearance: Present: A&O X 3, pleasant, no acute distress
== END 2016-10-11 13:10 | disposition home or self-care (01) | DRG 699 ==
LOC: EMEROO 16:20 → 2NENU 16:20
PROVIDERS: ADMIT Internal Medicine; ATTEND Internal Medicine